=== PATIENT | male | born 1960 | race Caucasian/White ===

== ENCOUNTER 2024-08-30 08:41 | Emergency (ER) | payer OTHER, SELFPAY ==
[2024-08-30 09:09] VITALS: TEMP 36.9; O2SAT 95; BMI 20.5
--- NOTE | 2024-08-30 09:24 | CTR_ITS ---
PROCEDURE INFORMATION: Exam: CT Abdomen And Pelvis With Contrast Exam date and time: 08/30/2024 10:18 AM Age: 63 years old Clinical indication: Abdominal pain; Generalized; Patient HX: HX of hernia's, . PT has severe tremors d/t childhood disease; Additional info: Abd pain TECHNIQUE: Imaging protocol: Computed tomography of the abdomen and pelvis with contrast. Radiation optimization: All CT scans at this facility use at least one of these dose optimization techniques: automated exposure control; mA and/or kV adjustment per patient size (includes targeted exams where dose is matched to clinical indication); or iterative reconstruction. Contrast material: OMNIPAQUE 350; Contrast volume: 100 ml; Contrast route: INTRAVENOUS (IV); COMPARISON: No relevant prior studies available. RADIATION DOSE METRICS: Total DLP (mGy-cm): 698.56 FINDINGS: Image quality is suboptimal due to involuntary movements. Bulky retroperitoneal and pelvic lymphadenopathy identified. Multiple lymph nodes are necrotic. Consider metastatic disease or possibly suppurative lymphadenopathy. Correlation with clinical and laboratory baby helpful in this distinction. Moderately severe right hydronephrosis and proximal hydroureter, likely obstructed by the adenopathy. There is associated diminished right renal parenchymal enhancement as compared to the left kidney. Minimal free fluid within the lower pelvis. No free air detected. Very small bilateral pleural effusions are present. Granulomatous calcifications in the right lower lobe and within the spleen. Presumed cyst posterior dome of the liver. No definite acute abnormality of the liver, spleen, pancreas, or adrenal glands. Motion induced artifact could potentially obscure pathology. No gross gallbladder wall thickening or biliary duct dilation. Abdominal aorta has normal caliber. No aggressive osseous destructive lesions are seen. CT/CT abdomen pelvis w con* [id number] IMPRESSION: 1. Pathologic abdominal and pelvic lymphadenopathy with multiple nodes having decreased attenuation compatible with necrosis. This could be on the basis of metastatic disease. Correlation with clinical and laboratory data would be helpful to exclude possibility of infectious/suppurative lymphadenopathy. 2. Moderate right hydronephrosis and proximal hydroureter; right ureter apparently obstructed by the retroperitoneal lymphadenopathy. 3. Trace bilateral pleural effusions and trace free fluid within the lower pelvis.
--- NOTE | 2024-08-30 09:34 | ED_ITS ---
HPI - Nausea/Vomiting/Diarrhea 2 General: Chief complaint: Nausea/Vomiting/Diarrhea Stated complaint: Vomitting, weakness, pain - has hernias Time Seen by Provider: 08/30/24 09:21 Source: patient Mode of arrival: ambulatory Limitations: no limitations History of Present Illness: 63-year-old male states has been having lower abdominal pain along with nausea is been going on for 2 days. He is concerned as he has had history of hernias and has hernia repair in the past. He states pains to 3 out of 10 he denies any diarrhea denies any worse improved factors denies any fevers. He does have a severe resting tremor he states is from a childhood disease Associated nausea: Yes Associated symtoms: Reports nausea; Denies chest pain, dysuria or headache(s) Related Data Previous Rx's Medication Instructions Recorded ondansetron 4 mg disintegrating 4 mg PO Q6H PRN nausea and 08/30/24 tablet vomiting #14 tabs Allergies Allergy/AdvReac Type Severity Reaction Status Date / Time No Known Allergies Allergy Verified 08/30/24 09:18 Review of Systems 2 Const: Denies: fever(s), chills, body aches or change in appetite ENMT: Denies: throat pain or dental pain Card: Denies: chest pain Resp: Denies: dyspnea GI: Reports: abdominal pain and nausea; Denies: diarrhea : Denies: dysuria Musc: Denies: neck pain or back pain Skin/Breast: Denies: rash Neuro: Denies: headache(s) Physical Exam 2 Const: COMMON NORMALS: no acute distress, patient oriented x3 and healthy appearing HENMT: COMMON NORMALS: normocephalic and atraumatic HEAD & SCALP: n ormocephalic and atraumatic Eye: COMMON NORMALS: Equal, round and reactive pupils present and EOMs intact bilaterally PUPIL: Yes Equal, round and reactive pupils present Neck/C-Spine: COMMON NORMALS: full ROM and supple Chest: COMMONS NORMALS: normal inspection of the chest and normal palpation of entire chest wall Resp: COMMON NORMALS: normal respiratory effort, No retractions, No use of accessory muscles and clear to auscultation bilaterally AUSCULTATION: clear to auscultation bilaterally Cardio: COMMON NORMALS: regular rate, regular rhythm and No murmurs present (Cardio) RATE: regular rate RHYTHM: regular rhythm GI: COMMON NORMALS: Normal to inspection, nondistended, normoactive bowel sounds present, Soft to palpation, non-tender and no masses PALPATION: Yes Soft to palpation Extremity: COMMON NORMALS: normal to inspection and full ROM Neuro: COMMON NORMALS: patient oriented x3, moves all extremities and no focal motor deficits Psych: COMMON NORMALS: mental status grossly normal, Normal thought process present and cooperative THOUGHT PROCESS: Normal thought process present Skin: COMMON NORMALS: no rashes or lesions noted and no wounds GENERAL SKIN EXAM: no rashes or lesions noted Course 2 Vital Signs: Vital signs: Vital Signs Temperature 98.5 F 08/30/24 09:09 Pulse Rate 102 H 08/30/24 10:00 Blood Pressure 166/82 08/30/24 10:00 Pulse Oximetry 93 08/30/24 10:00 Oxygen Delivery Me thod Room Air 08/30/24 09:45 MDM - Nausea/Vomiting/Diarrhea Medical Decision Making Patient presents here with vomiting along with abdominal pain did palpable lymph nodes in his groin CT did show extensive lymphadenopathy we will get him follow- up with oncology along with PCP will prescribe Zofran return if worsening. Medical Records I reviewed the patient's medical records. Lab Data I reviewed the patient's lab results. 08/30/24 09:45 08/30/24 09:45 Radiology Impressions Abdomen/Pelvis CT 08/30/24 09:24 IMPRESSION: 1. Pathologic abdominal and pelvic lymphadenopathy with multiple nodes having decreased attenuation compatible with necrosis. This could be on the basis of metastatic disease. Correlation with clinical and laboratory data would be helpful to exclude possibility of infectious/suppurative lymphadenopathy. 2. Moderate right hydronephrosis and proximal hydroureter; right ureter apparently obstructed by the retroperitoneal lymphadenopathy. 3. Trace bilateral pleural effusions and trace free fluid within the lower pelvis. Laboratory Results WBC 5.38 10^3/uL (3.29-11.43) 08/30/24 09:45 RBC 3.61 10^6/uL (3.85-5.65) L 08/30/24 09:45 Hgb 9.40 g/dL (11.27-16.99) L 08/30/24 09:45 Hct 30.3 % (37-53) L 08/30/24 09:45 MCV 83.9 fl (82-101) 08/30/24 09:45 MCH 26.0 pg (27-33) L 08/30/24 09:45 MCHC 31.0 g/dL (30-55) 08/30/24 09:45 RDW 14.5 % (12.1-15.1) 08/30/24 09:45 Plt Count 183 10^3/cmm (157-399) 08/30/24 09:45 MPV 9.7 fL (7.4-10.4) 08/30/24 09:45 Neut % (Auto) 79.1 % 08/30/24 09:45 Lymph % (Auto) 7.2 % 08/30/24 09:45 [place] % (Auto) 11.5 % 08/30/24 09:45 Eos % (Auto) 0.4 % 08/30/24 09:45 Baso % (Auto) 1.1 % 08/30/24 09:45 Neut # (Auto) 4.25 10^3/uL (1.8-7.7) 08/30/24 09:45 Lymph # (Auto) 0.4 10^3/uL (0.8-4.8) L 08/30/24 09:45 [place] # (Auto) 0.6 10^3/uL (0.2-0.9) 08/30/24 09:45 Eos # (Auto) 0.0 10^3/uL (0.0-0.8) 08/30/24 09:45 Baso # (Auto) 0.1 10^3/uL (0.0-0.1) 08/30/24 09:45 Nucleated RBC % (auto) 0 % 08/30/24 09:45 Nucleated RBCs # 0.0 /100WBC 08/30/24 09:45 Sodium 133 mmol/L (136-145) L 08/30/24 09:45 Potassium 4.5 mmol/L (3.5-5.1) 08/30/24 09:45 Chloride 98 mmol/L (98-107) 08/30/24 09:45 Carbon Dioxide 27 mmol/L (22-29) 08/30/24 09:45 Anion Gap 12.5 (5-19) 08/30/24 09:45 BUN 31 mg/dL (8-23) H 08/30/24 09:45 Creatinine 1.2 mg/dL (0.7-1.2) 08/30/24 09:45 GFR Calculation 61.6 mL/min (90-130) L 08/30/24 09:45 Glucose 83 mg/dL (65-115) 08/30/24 09:45 Calculated Osmolality 282 mOsm/kg (285-295) L 08/30/24 09:45 Calcium 8.3 mg/dL (8.5-10.5) L 08/30/24 09:45 Total Bilirubin 0.3 mg/dL (0.15-1.2) 08/30/24 09:45 AST 23 U/L (0-40) 08/30/24 09:45 ALT 17 U/L (0-41) 08/30/24 09:45 Alkaline Phosphatase 74 U/L (40-130) 08/30/24 09:45 Total Protein 6.0 g/dL (6.6-8.7) L 08/30/24 09:45 Albumin 3.2 g/dL (3.5-5.2) L 08/30/24 09:45 Globulin 2.8 g/dL (1.3-4.6) 08/30/24 09:45 Lipase 220 U/L (13-60) H 08/30/24 09:45 Urine Color Yellow (Yellow) 08/30/24 11:10 Urine Appearance Clear (CLEAR) 08/30/24 11:10 Urine pH 5.5 (5-7) 08/30/24 11:10 Ur Specific [place] 1.037 (1.005-1.030) H 08/30/24 11:10 Urine Protein 1+ (Negative) A 08/30/24 11:10 Urine Glucose (UA) Negative (Normal) 08/30/24 11:10 Urine Ketones Negative (Negative) 08/30/24 11:10 Urine Blood Negative (Negative) 08/30/24 11:10 Urine Nitrate Negative (Negative) 08/30/24 11:10 Urine Bilirubin Negative (Negative) 08/30/24 11:10 Urine Urobilinogen 1.0 mg/dL (Negative) 08/30/24 11:10 Ur Leukocyte Esterase Negative (Negative) 08/30/24 11:10 Urine RBC 0-2 /hpf (0-2) 08/30/24 11:10 Urine WBC 0-5 /hpf (0-5) 08/30/24 11:10 Ur Squamous Epith Cells 0-5 /hpf (0-5) 08/30/24 11:10 Amorphous Sediment Not Reportable 08/30/24 11:10 Urine Bacteria None seen /hpf (NONE) 08/30/24 11:10 Hyaline Casts 3.30 /lpf 08/30/24 11:10 All radiology interpretation(s) finalized by discharge Discharge Plan Discharge Patient Disposition: Home Clinical Impression: Vomiting, Lymphadenopathy Condition: Stable Prescriptions: New ondansetron 4 mg tablet,disintegrating 4 mg PO Q6H PRN (Reason: nausea and vomiting) Qty: 14 0RF Discharge Orders: Discharge ED (Routine); Ordered 08/30/24 Ordered By: Marva Irizarry Discharge Diet: Advance as tolerated Discharge Activity: Resume usual activity Patient Instructions: Lymphadenopathy (ED), Acute Nausea and Vomiting (ED) Coding Level of Care Code ED Senior Staff Psychologist for Elva Medina
[2024-08-30 09:45] VITALS: BP 162/55; PULSE 102; O2SAT 100
[2024-08-30] MEDS: LORazepam 2 mg/mL INJ 1 mL 1 MG IVP (09:52)
[2024-08-30 09:55] LABS: Basophils # 0.1 10^3/uL (0.0-0.1); Basophils % 1.1 %; Eosinophils % 0.4 %; Hematocrit 30.3 % (37-53); Lymphocytes # 0.4 10^3/uL (0.8-4.8); Lymphocytes % 7.2 %; Mean Corpuscular Volume 83.9 fl (82-101); Mean Platelet Volume 9.7 fL (7.4-10.4); Monocytes # 0.6 10^3/uL (0.2-0.9); Monocytes % 11.5 %; Neutrophils # 4.25 10^3/uL (1.8-7.7); Neutrophils % 79.1 %; Nucleated Red Blood Cells % 0 %; Platelet Count 183 10^3/cmm (157-399); Red Blood Count 3.61 10^6/uL (3.85-5.65); Red Cell Distribution Width 14.5 % (12.1-15.1); White Blood Count 5.38 10^3/uL (3.29-11.43)
[2024-08-30 10:00] VITALS: BP 166/82; PULSE 102; O2SAT 93
[2024-08-30 10:11] LABS: Alanine Aminotransferase 17 U/L (0-41); Albumin Level 3.2 g/dL (3.5-5.2); Alkaline Phosphatase 74 U/L (40-130); Anion Gap 12.5 (5-19); Aspartate Amino Transferase 23 U/L (0-40); Blood Urea Nitrogen 31 mg/dL (8-23); Calcium 8.3 mg/dL (8.5-10.5); Carbon Dioxide 27 mmol/L (22-29); Chloride 98 mmol/L (98-107); Creatinine Clr Calc Pharmacy 59.9211; Globulin 2.8 g/dL (1.3-4.6); Glomerular Filtration Rate 61.6 mL/min (90-130); Glucose 83 mg/dL (65-115); Lipase 220 U/L (13-60); Osmolality Calculated 282 mOsm/kg (285-295); Potassium 4.5 mmol/L (3.5-5.1); Sodium 133 mmol/L (136-145); Total Bilirubin 0.3 mg/dL (0.15-1.2)
[2024-08-30] MEDS: iohexol 350 mg/mL 500 mL Btl (per mL) IV (10:23)
[2024-08-30 11:31] LABS: Bilirubin Urine Negative (Negative); Blood Urine Negative (Negative); Glucose Urine UA Negative (Normal); Ketones Urine Negative (Negative); Leukocyte Esterase Urine Negative (Negative); Nitrate Urine Negative (Negative); Protein Urine 1+ (Negative); Urine Appearance Clear (CLEAR); Urine Color Yellow (Yellow); pH Urine 5.5 (5-7)
[2024-08-30 11:36] LABS: Add Urine Microscopic? YES; Bacteria Urine None Seen /hpf; RBC Urine 0-2 /hpf (0-2); Squamous Epithelial Cell Urine 0-5 /hpf (0-5); WBC Urine 0-5 /hpf (0-5)
[2024-08-30 11:37] LABS: Specific Gravity, Urine 1.037 (1.005-1.030)
[2024-08-30 12:09] VITALS: BP 110/56; PULSE 98; O2SAT 99
--- NOTE | 2024-08-31 08:06 | DCPLANNER ---
messaged [facility] and oncology for er f/u
== END 2024-08-30 12:12 | disposition home or self-care (01) ==
PROVIDERS: Emergency Provider Emergency Medicine
DX: R59.1 Generalized enlarged lymph nodes (principal); R11.11 Vomiting without nausea
CPT/HCPCS: 74177; 80053; 81001; 83690; 85025; 96374; 99285; J2060

== ENCOUNTER 2024-09-02 09:41 | Emergency (ER) | payer OTHER, SELFPAY ==
[2024-09-02 10:01] VITALS: PULSE 115; RESP 16; TEMP 36.7; O2SAT 95
--- NOTE | 2024-09-02 10:28 | PC.PHAR ---
patient confirms that he doesn't take any medications other than what he just got prescribed a couple days ago when released. Will call pharmacy just to confirm
[2024-09-02 10:31] LABS: Basophils % 0.8 %; Eosinophils % 0.2 %; Hematocrit 28.3 % (37-53); Lymphocytes # 0.4 10^3/uL (0.8-4.8); Lymphocytes % 8.5 %; Mean Corpuscular HGB Conc 31.8 g/dL (30-55); Mean Corpuscular Hemoglobin 26.3 pg (27-33); Mean Corpuscular Volume 82.7 fl (82-101); Mean Platelet Volume 9.6 fL (7.4-10.4); Monocytes # 0.4 10^3/uL (0.2-0.9); Monocytes % 7.9 %; Neutrophils % 81.1 %; Nucleated Red Blood Cells % 0 %; Platelet Count 174 10^3/cmm (157-399); Red Blood Count 3.42 10^6/uL (3.85-5.65); Red Cell Distribution Width 14.6 % (12.1-15.1); White Blood Count 4.81 10^3/uL (3.29-11.43)
--- NOTE | 2024-09-02 10:36 | W.ED.GENADLT ---
HPI - General Adult General: Chief complaint: General Medical Stated complaint: pain in groin, cant sleep, trouble walking Time Seen by Provider: 09/02/24 10:10 History of Present Illness: 63-year-old male presents emergency room complaint of groin pain difficulty walking patient has pain and swelling in the groin. He was seen a couple days earlier had a CT done that showed significant mental lymphadenopathy. He also has slight elevation of his lipase. He has not had any nausea or vomiting just severe pain. He has not had any abdominal pain is limited to the groin region. No dysuria urgency or frequency. He was scheduled to see oncology but has not yet seen them Associated symptoms: Deny chest pain, dyspnea or rash Related Data Previous Rx's Medication Instructions Recorded ondansetron 4 mg disintegrating 4 mg PO Q6H PRN nausea and 08/30/24 tablet vomiting #14 tabs hydrocodone 5 mg-acetaminophen 325 1 tab PO Q6H PRN pain #25 tabs 09/02/24 mg tablet Allergies Allergy/AdvReac Type Severity Reaction Status Date / Time No Known Allergies Allergy Verified 08/30/24 09:18 Review of Systems Const: Denies: fever(s) or chills Card: Denies: chest pain Resp: Denies: dyspnea GI: Reports: abdominal pain : Denies: dysuria, urinary frequency or urinary urgency Musc: Denies: neck pain or back pain Skin/Breast: Denies: rash Physical Exam Const: GENERAL APPEARANCE: cooperative ORIENTATION/CONSCIOUSNESS: Yes awake, Yes oriented to person, Yes oriented to place and Yes oriented to time HENMT: COMMON NORMALS: normocephalic, atraumatic and hearing grossly normal bilaterally HEAD & SCALP: normocephalic and atraumatic Resp: COMMON NORMALS: normal respiratory effort, No retractions, No use of accessory muscles and clear to auscultation bilaterally AUSCULTATION: clear to auscultation bilaterally Cardio: COMMON NORMALS: regular rate, regular rhythm and No murmurs present (Cardio) RATE: regular rate RHYTHM: regular rhythm GI: COMMON NORMALS: Soft to palpation and No hepatosplenomegaly present AUSCULTATION: Yes normoactive bowel sounds PALPATION: Yes Soft to palpation, No Tenderness to palpation present (GI), No Guarding due to palpation present (GI) and Yes No hepatosplenomegaly present Extremity: COMMON NORMALS: normal to inspection, capillary refill normal, no clubbing, cyanosis or edema, no calf tenderness and no pedal edema Neuro: SENSORIUM/ORIENTATION: Yes oriented to person, Yes oriented to place and Yes oriented to time Skin: COMMON NORMALS: no rashes or lesions noted GENERAL SKIN EXAM: no rashes or lesions noted Course Vital Signs: Vital signs: Vital Signs Temperature 98.1 F 09/02/24 10:01 Pulse Rate 104 H 09/02/24 11:58 Respiratory Rate 28 H 09/02/24 11:09 Blood Pressure 142/103 09/02/24 11:58 Pulse Oximetry 94 09/02/24 11:58 Oxygen Delivery Me thod Room Air 09/02/24 11:08 MDM - General Adult Medical Decision Making Patient has exquisitely tender bilateral lymphadenopathy. He has no abdominal pain labs reviewed he is anemic but this unchanged. His other labs did not show clinically significant abnormality or significant change with the 1 exception being his bilirubin is slightly elevated from before. He does not have any abdominal pain biliary colic left upper quadrant pain at this time. He feels much better after receiving pain medication at. Will discharge patient home and he should keep the oncology appointment but as a prior step would be better served to see general surgery and have a lymph node biopsy so oncology has some tissue diagnosis to work with to offer treatment options pending the results of the biopsies. Discharge patient home with pain medications. Medical Records I reviewed the patient's medical records. Lab Data I reviewed the patient's lab results. 09/02/24 10:22 09/02/24 10:22 Radiology Impressions Chest X-Ray 09/02/24 10:37 IMPRESSION: Minimal right pleural effusion. Laboratory Results WBC 4.81 10^3/uL (3.29-11.43) 09/02/24 10: RBC 3.42 10^6/uL (3.85-5.65) L 09/02/24 10: Hgb 9.00 g/dL (11.27-16.99) L 09/02/24 10:22 Hct 28.3 % (37-53) L 09/02/24 10:22 MCV 82.7 fl (82-101) 09/02/24 10: MCH 26.3 pg (27-33) L 09/02/24 10:22 MCHC 31.8 g/dL (30-55) 09/02/24 10: RDW 14.6 % (12.1-15.1) 09/02/24 10: Plt Count 174 10^3/cmm (157-399) 09/02/24 10:22 MPV 9.6 fL (7.4-10.4) 09/02/24 10:22 Neut % (Auto) 81.1 % 09/02/24 10:22 Lymph % (Auto) 8.5 % 09/02/24 10:22 [place] % (Auto) 7.9 % 09/02/24 10:22 Eos % (Auto) 0.2 % 09/02/24 10:22 Baso % (Auto) 0.8 % 09/02/24 10: Neut # (Auto) 3.90 10^3/uL (1.8-7.7) 09/02/24 10:22 Lymph # (Auto) 0.4 10^3/uL (0.8-4.8) L 09/02/24 10:22 [place] # (Auto) 0.4 10^3/uL (0.2-0.9) 09/02/24 10:22 Eos # (Auto) 0.0 10^3/uL (0.0-0.8) 09/02/24 10:22 Baso # (Auto) 0.0 10^3/uL (0.0-0.1) 09/02/24 10:22 Nucleated RBC % (auto) 0 % 09/02/24 10:22 Nucleated RBCs # 0.0 /100WBC 09/02/24 10:22 Sodium 131 mmol/L (136-145) L 09/02/24 10:22 Potassium 4.5 mmol/L (3.5-5.1) 09/02/24 10:22 Chloride 95 mmol/L (98-107) L 09/02/24 10:22 Carbon Dioxide 26 mmol/L (22-29) 09/02/24 10:22 Anion Gap 14.5 (5-19) 09/02/24 10:22 BUN 31 mg/dL (8-23) H 09/02/24 10:22 Creatinine 1.2 mg/dL (0.7-1.2) 09/02/24 10:22 GFR Calculation 61.6 mL/min (90-130) L 09/02/24 10:22 Glucose 86 mg/dL (65-115) 09/02/24 10:22 Calculated Osmolality 278 mOsm/kg (285-295) L 09/02/24 10:22 Calcium 8.4 mg/dL (8.5-10.5) L 09/02/24 10:22 Total Bilirubin 1.5 mg/dL (0.15-1.2) H 09/02/24 10:22 AST 24 U/L (0-40) 09/02/24 10:22 ALT 17 U/L (0-41) 09/02/24 10:22 Alkaline Phosphatase 66 U/L (40-130) 09/02/24 10:22 C-Reactive Protein 104.1 mg/L (0.0-4.9) H 09/02/24 10:22 Total Protein 5.8 g/dL (6.6-8.7) L 09/02/24 10:22 Albumin 3.0 g/dL (3.5-5.2) L 09/02/24 10:22 Globulin 2.8 g/dL (1.3-4.6) 09/02/24 10:22 Urine Color Yellow (Yellow) 09/02/24 10:53 Urine Appearance Clear (CLEAR) 09/02/24 10:53 Urine pH 5.0 (5-7) 09/02/24 10:53 Ur Specific [place] 1.024 (1.005-1.030) 09/02/24 10:53 Urine Protein 2+ (Negative) A 09/02/24 10:53 Urine Glucose (UA) Negative (Normal) 09/02/24 10:53 Urine Ketones Negative (Negative) 09/02/24 10:53 Urine Blood Negative (Negative) 09/02/24 10:53 Urine Nitrate Negative (Negative) 09/02/24 10:53 Urine Bilirubin Negative (Negative) 09/02/24 10:53 Urine Urobilinogen 1.0 mg/dL (Negative) 09/02/24 10:53 Ur Leukocyte Esterase Negative (Negative) 09/02/24 10:53 Urine RBC 0-2 /hpf (0-2) 09/02/24 10:53 Urine WBC 0-5 /hpf (0-5) 09/02/24 10:53 Ur Squamous Epith Cells 0-5 /hpf (0-5) 09/02/24 10:53 Amorphous Sediment Not Reportable 09/02/24 10:53 Urine Bacteria None seen /hpf (NONE) 09/02/24 10:53 Hyaline Casts 33.08 /lpf 09/02/24 10:53 All radiology interpretation(s) finalized by discharge Discharge Plan Discharge Patient Disposition: Home Clinical Impression: Lymphadenopathy Condition: Stable Prescriptions: New hydrocodone-acetaminophen 5-325 mg tablet 1 tab PO Q6H PRN (Reason: pain) Qty: 25 0RF No Action ondansetron 4 mg tablet,disintegrating 4 mg PO Q6H PRN (Reason: nausea and vomiting) Qty: 14 0RF Discharge Orders: Discharge ED (Routine); Ordered 09/02/24 Ordered By: Guille Espinoza Patient Instructions: Opioid Safety, Pain Management Activity Restrictions/Additional Instructions: Thank you for choosing [facility] for your healthcare needs today. It is very important that you follow up as instructed or that you return to the Emergency Department should you have concerns or if your condition changes or worsens in any way. You were seen today for continued pain in the groin. Your laboratory tests showed anemia consistent with what was seen on the prior testing. You had other lab abnormalities on your bilirubin. We will make arrangements for you to follow-up with general surgery to have the lymph nodes biopsied. Return if you have further problems. Coding Level of Care Code ED Certified Legal Secretary Specialist for Elva Medina
--- NOTE | 2024-09-02 10:37 | XRR_ITS ---
PROCEDURE INFORMATION: Exam: XR Chest Exam date and time: 09/02/2024 10:39 AM Age: 63 years old Clinical indication: Cough and dyspnea; Additional info: Dyspnea/cough TECHNIQUE: Imaging protocol: Radiologic exam of the chest. Views: 1 view. COMPARISON: CT abdomen pelvis w con* [id number] 08/30/2024 10:18 AM FINDINGS: Lungs: Mild right basilar linear atelectasis versus scarring. Subtle linear densities at the mid right lung zone may also represent atelectasis or scarring. No consolidation. Pleural spaces: Minimal right pleural effusion. No pneumothorax. Heart/Mediastinum: Unremarkable. No cardiomegaly. Bones/joints: Unremarkable. XR/XR chest 1V portable [id number] IMPRESSION: Minimal right pleural effusion.
[2024-09-02 10:38] VITALS: BP 120/90
[2024-09-02 10:48] LABS: Alanine Aminotransferase 17 U/L (0-41); Alkaline Phosphatase 66 U/L (40-130); Anion Gap 14.5 (5-19); Aspartate Amino Transferase 24 U/L (0-40); Blood Urea Nitrogen 31 mg/dL (8-23); C Reactive Protein 104.1 mg/L (0.0-4.9); Calcium 8.4 mg/dL (8.5-10.5); Carbon Dioxide 26 mmol/L (22-29); Chloride 95 mmol/L (98-107); Globulin 2.8 g/dL (1.3-4.6); Glomerular Filtration Rate 61.6 mL/min (90-130); Glucose 86 mg/dL (65-115); Osmolality Calculated 278 mOsm/kg (285-295); Potassium 4.5 mmol/L (3.5-5.1); Sodium 131 mmol/L (136-145); Total Bilirubin 1.5 mg/dL (0.15-1.2); Total Protein 5.8 g/dL (6.6-8.7)
[2024-09-02 10:51] LABS: Slide Review Slide Review Perform
[2024-09-02 11:08] VITALS: BP 133/78; PULSE 96; RESP 28; O2SAT 94
[2024-09-02 11:09] VITALS: RESP 28; O2SAT 93
[2024-09-02 11:09] LABS: Bilirubin Urine Negative (Negative); Blood Urine Negative (Negative); Glucose Urine UA Negative (Normal); Ketones Urine Negative (Negative); Leukocyte Esterase Urine Negative (Negative); Nitrate Urine Negative (Negative); Protein Urine 2+ (Negative); Specific Gravity, Urine 1.024 (1.005-1.030); Urine Appearance Clear (CLEAR); Urine Color Yellow (Yellow)
[2024-09-02] MEDS: morphine 4 mg/mL SDV 1 mL IVP (11:09)
[2024-09-02] MEDS: ondansetron 2 mg/ML SDV 2 mL 4 MG IVP (11:09)
[2024-09-02 11:11] LABS: Add Urine Microscopic? YES; Bacteria Urine None Seen /hpf; Hyaline Casts Urine 33.08 /lpf; RBC Urine 0-2 /hpf (0-2); Squamous Epithelial Cell Urine 0-5 /hpf (0-5); WBC Urine 0-5 /hpf (0-5)
[2024-09-02 11:33] LABS: UA Slide Review UA Slide Review Perf
[2024-09-02 11:58] VITALS: BP 142/103; PULSE 104; O2SAT 94
--- NOTE | 2024-09-02 12:04 | DCPLANNER ---
Scheduled with Leydi for a consult with Dr Tipton for 09/03 @ 1:15p
--- NOTE | 2024-09-02 12:08 | PC.NURSE ---
this nurse educated pt on appointment with Dr. Tipton tomorrow, 09/03/2024, @6613. pt aware of consult/biopsy plan. no further questions/concerns
--- NOTE | 2024-09-03 07:31 | DCPLANNER ---
messaged gen surg for er f/u
== END 2024-09-02 12:07 | disposition home or self-care (01) ==
PROVIDERS: Emergency Provider Family Medicine
DX: R59.1 Generalized enlarged lymph nodes (principal)
CPT/HCPCS: 71045; 80053; 81001; 85025; 86140; 96374; 96375; 99284; J2270; J2405

== ENCOUNTER 2024-09-11 15:17 | Inpatient (IN) | payer OTHER, SELFPAY ==
[2024-09-11] VITALS (37 sets, daily range): BP systolic 70–132; BP diastolic 40–80; PULSE 88–157; RESP 14–28; TEMP 36.5–37.4; O2SAT 85–100; BMI 21.2
--- NOTE | 2024-09-11 15:24 | ECG_ITS ---
[employer] Test Date: 2024-09-11 Pat Name: Cricket Moran Department: Room: Gender: Male Cobbler Upper: : 1960 Requested By: Garland Spears Order Number: [id number] Perez MD: Madeline Boston M.D. Measurements Intervals [place] Rate: 156 P: 0 VA: 0 QRS: 82 QRSD: 85 T: -74 QT: 263 QTc: 424 Interpretive Statements ATRIAL FIBRILLATION WITH RAPID VENTRICULAR RESPONSE ST DEVIATION AND MODERATE T-WAVE ABNORMALITY, CONSIDER INFERIOR ISCHEMIA No previous ECG available for comparison Electronically Signed On 09-12-2024 13:43:58 CDT by Madeline Boston M.D. [email or web address]
--- NOTE | 2024-09-11 15:40 | XRR_ITS ---
PROCEDURE INFORMATION: Exam: XR Chest Exam date and time: 09/11/2024 4:05 PM Age: 63 years old Clinical indication: Shortness of breath and other: Atrial fibrillation TECHNIQUE: Imaging protocol: Radiologic exam of the chest. Views: 1 view. COMPARISON: CR XR chest 1V portable [id number] 09/02/2024 10:39 AM FINDINGS: Lungs: No focal consolidation. Pleural spaces: No sizable pleural effusion. No pneumothorax. Heart/Mediastinum: Unremarkable cardiomediastinal silhouette. Bones/joints: The spine demonstrates mild degenerative changes at multiple levels. XR/XR chest 1V portable [id number] IMPRESSION: No acute findings.
[2024-09-11] MEDS: dilTIAZem 5 mg/mL SDV 5 mL 10 MG IVP (15:57)
[2024-09-11] MEDS: sodium chloride 0.9% 1,000 ML 999 ML IV ×3 (15:57→17:05)
--- NOTE | 2024-09-11 15:57 | PC.NURSE ---
UNABLE TO OBTAIN OXYGEN SATURATION READING IN TRIAGE DUE TO PT TREMORS AND PT BEING COLD.
[2024-09-11] MEDS: dilTIAZem 100 MG in sodium chloride 0.9% (add-van) 100 ML IV (15:59)
[2024-09-11 16:00] LABS: Basophils # 0.1 10^3/uL (0.0-0.1); Basophils % 0.5 %; Eosinophils # 0.1 10^3/uL (0.0-0.8); Eosinophils % 0.6 %; Hematocrit 32.5 % (37-53); Lymphocytes # 3.2 10^3/uL (0.8-4.8); Lymphocytes % 13.5 %; Mean Corpuscular HGB Conc 29.5 g/dL (30-55); Mean Corpuscular Hemoglobin 25.6 pg (27-33); Mean Corpuscular Volume 86.7 fl (82-101); Mean Platelet Volume 10.3 fL (7.4-10.4); Monocytes # 1.9 10^3/uL (0.2-0.9); Monocytes % 8.1 %; Neutrophils # 13.04 10^3/uL (1.8-7.7); Neutrophils % 55.9 %; Nucleated Red Blood Cells # 0.4 /100WBC; Nucleated Red Blood Cells % 1.6 %; Platelet Count 113 10^3/cmm (157-399); Red Blood Count 3.75 10^6/uL (3.85-5.65); White Blood Count 23.32 10^3/uL (3.29-11.43)
[2024-09-11 16:05] LABS: ABG PCO2 28.9 mmHg (35-45); ABG PH Result 7.31 (7.35-7.45); Arterial Blood Gas Hematocrit 25.2 % (42-52); Base Excess ABG -10.8 mmol/L (-2.0-2.0); Blood Gas Operator Identificat AMH; Blood Gas Sample Site Brachial, right; Blood Gas Sample Type Arterial; HCO3 ABG 14.4 mmol/L (22-26)
[2024-09-11 16:06] LABS: Oxygen Device NC; PO2 FiO2 Ratio Arterial Blood 450
--- NOTE | 2024-09-11 16:08 | PC.NURSE ---
CHAZ FROM [employer] INFORMED THIS NURSE OF PT LIVING CONDITIONS. CHAZ STATED THAT PT WAS FOUND ON THE FLOOR, UNABLE TO GET UP AND UNABLE TO REGULATORY COMPLIANCE SPECIALIST HIS WATER. CHAZ STATED SHE WANTED TO FOLLOW UP TO MAKE SURE ER STAFF KNEW THE ENTIRE STORY OF PT LIVING CONDITIONS. CHAZ SAID SHE WOULD FOLLOW UP ON PT STAY AT THE HOSPITAL.
[2024-09-11 16:13] LABS: D Dimer 3.49 ug/mLFEU (0-0.59)
[2024-09-11 16:15] LABS: Troponin(5th) Baseline 66 ng/L (0-15)
[2024-09-11 16:16] LABS: Alanine Aminotransferase 31 U/L (0-41); Alkaline Phosphatase 99 U/L (40-130); Anion Gap 30.3 (5-19); Aspartate Amino Transferase 68 U/L (0-40); Calcium 10.3 mg/dL (8.5-10.5); Carbon Dioxide 16 mmol/L (22-29); Chloride 94 mmol/L (98-107); Globulin 2.2 g/dL (1.3-4.6); Glomerular Filtration Rate 19.2 mL/min (90-130); Glucose 104 mg/dL (65-115); Lipase 211 U/L (13-60); Osmolality Calculated 308 mOsm/kg (285-295); Potassium 5.3 mmol/L (3.5-5.1); Sodium 135 mmol/L (136-145); Total Bilirubin 1.1 mg/dL (0.15-1.2); Total Protein 5.2 g/dL (6.6-8.7)
[2024-09-11 16:18] LABS: Blood Urea Nitrogen 91 mg/dL (8-23); Lactic Sepsis W/Reflex 11.7 mmol/L (0.5-2.2); Partial Thromboplastin Time 75.9 SECONDS (23.9-36.7)
[2024-09-11 16:26] LABS: Thyroid Stimulating Hormone 2.81 uIU/mL (0.27-4.20)
[2024-09-11 16:27] LABS: NT Pro B Type Natriuretic Pept 4216 pg/mL (0-125)
[2024-09-11 16:36] LABS: Bilirubin Urine Negative (Negative); Blood Urine 2+ (Negative); Glucose Urine UA Negative (Normal); Ketones Urine Trace (Negative); Leukocyte Esterase Urine Negative (Negative); Nitrate Urine Negative (Negative); Protein Urine 1+ (Negative); Specific Gravity, Urine 1.017 (1.005-1.030); Urine Appearance Cloudy (CLEAR); Urine Color Yellow (Yellow)
--- NOTE | 2024-09-11 16:39 | W.ED.WEAKNES ---
HPI - Weakness General: Chief complaint: Weakness Stated complaint: etta edema, failure to thrive, resp distress Time Seen by Provider: 09/11/24 15:22 History of Present Illness: This patient is a 63-year-old white male who presents to the emergency department in respiratory distress and failure to thrive at home. Patient called EMS himself because he stated he was not feeling well. States he has not been feeling well for a long time . He does live alone. His a month ago and he has not been taking care of himself and has not been eating. States the only medication he takes is 1 pain pill. States he has no chronic medical problems. He denies having any pain at this time. Specifically no chest pain. States he has some occasional shortness of breath. Review of Systems General: Reports: 10 or more systems reviewed and unremarkable except in HPI and below Const: Reports: change in appetite, change in weight, fatigue and malaise Resp: Reports: dyspnea PFSH ED PFSH: Social History Smoking and tobacco/nicotine status: former use of tobacco/nicotine Physical Exam Const: COMMON NORMALS: patient oriented x3 and no limitations GENERAL APPEARANCE: cooperative, in distress, disheveled, lethargic, ill appearing, frail appearing and appears older than stated age NUTRITIONAL APPEARANCE: cachectic and underweight ORIENTATION/CONSCIOUSNESS: Yes lethargic HENMT: COMMON NORMALS: normocephalic and atraumatic HEAD & SCALP: normal to inspection, normocephalic and atraumatic FACE & SINUS: normal facial exam MOUTH: other (Dry mucous membranes) Eye: COMMON NORMALS: Equal, round and reactive pupils present, EOMs intact bilaterally and conjunctivae normal GENERAL EYE: appearance normal, both eyes and all related structures CONJUNCTIVA: Yes conjunctivae normal PUPIL: Yes Equal, round and reactive pupils present Neck/C-Spine: COMMON NORMALS: supple Chest: COMMONS NORMALS: normal inspection of the chest Resp: COMMON NORMALS: normal respiratory effort and clear to auscultation bilaterally AUSCULTATION: clear to auscultation bilaterally Cardio: RATE: tachycardic RHYTHM: abnormal rhythm irregularly irregular GI: COMMON NORMALS: Normal to inspection, nondistended, normoactive bowel sounds present, Soft to palpation and non-tender AUSCULTATION: Yes normoactive bowel sounds PALPATION: Yes Soft to palpation : COMMON NORMALS: Yes no CVA tenderness BLADDER/KIDNEY EXAM: Yes no CVA tenderness Back/Pelvis: COMMON NORMALS: no CVA tenderness and thoracic and lumbar spine normal to inspection Extremity: COMMON NORMALS: normal to inspection Neuro: COMMON NORMALS: patient oriented x3 and CN's II-XII intact bilaterally SENSORIUM/ORIENTATION: Yes lethargic Psych: COMMON NORMALS: mental status grossly normal, Normal thought process present and cooperative THOUGHT PROCESS: Normal thought process present Skin: COMMON NORMALS: no rashes or lesions noted, turgor normal and no jaundice GENERAL SKIN EXAM: no rashes or lesions noted and turgor normal Course Vital Signs: Vital signs: Vital Signs Temperature 97.7 F 09/11/24 15:18 Pulse Rate 125 H 09/11/24 17:04 Respiratory Rate 25 H 09/11/24 17:04 Blood Pressure 109/74 09/11/24 17:04 Pulse Oximetry 100 09/11/24 17:04 Oxygen Delivery Me thod Nasal Cannula 09/11/24 17:04 Oxygen Flow Rate 2 09/11/24 17:04 MDM - Weakness Medical Decision Making Upon arrival patient's blood pressure was in the 90s systolic and heart rate in the 150s. He appeared to be in atrial fibrillation with rapid ventricular response. EKG does reveal that his ventricular rate is 156. Patient was immediately given IV fluids and Cardizem bolus and placed on a Cardizem drip. His CBC reveals a white blood cell count of 23.3, hemoglobin 9.6 and a platelet count of 113. CMP reveals a potassium of 5.3, bicarb of 16, BUN 91, creatinine 3.3. Lactic acid 11.7. D-dimer 3.5. Baseline troponin 66. Urinalysis is consistent with a urinary tract infection. Chest x-ray did not reveal any infiltrates. Sepsis protocol initiated. Patient will be given a total of 3 L of normal saline. He will also be given vancomycin and Zosyn. I discussed the case with Dr. Braswell, hospitalist. Patient will be admitted to the intensive care unit. Later during the ER stay patient's systolic blood pressure dropped down into the 80s so we then initiated norepinephrine per protocol. Patient is in critical condition. Lab Data 09/11/24 15:40 09/11/24 15:40 Radiology Impressions Chest X-Ray 09/11/24 15:40 IMPRESSION: No acute findings. Laboratory Results WBC 23.32 10^3/uL (3.29-11.43) H 09/11/24 15:40 RBC 3.75 10^6/uL (3.85-5.65) L 09/11/24 15:40 Hgb 9.60 g/dL (11.27-16.99) L 09/11/24 15:40 Hct 32.5 % (37-53) L 09/11/24 15:40 MCV 86.7 fl (82-101) 09/11/24 15:40 MCH 25.6 pg (27-33) L 09/11/24 15:40 MCHC 29.5 g/dL (30-55) L 09/11/24 15:40 RDW 16.0 % (12.1-15.1) H 09/11/24 15:40 Plt Count 113 10^3/cmm (157-399) L 09/11/24 15:40 MPV 10.3 fL (7.4-10.4) 09/11/24 15:40 Neut % (Auto) 55.9 % 09/11/24 15:40 Lymph % (Auto) 13.5 % 09/11/24 15:40 Kerr % (Auto) 8.1 % 09/11/24 15:40 Eos % (Auto) 0.6 % 09/11/24 15:40 Baso % (Auto) 0.5 % 09/11/24 15:40 Neut # (Auto) 13.04 10^3/uL (1.8-7.7) H 09/11/24 15:40 Lymph # (Auto) 3.2 10^3/uL (0.8-4.8) 09/11/24 15:40 Kerr # (Auto) 1.9 10^3/uL (0.2-0.9) H 09/11/24 15:40 Eos # (Auto) 0.1 10^3/uL (0.0-0.8) 09/11/24 15:40 Baso # (Auto) 0.1 10^3/uL (0.0-0.1) 09/11/24 15:40 Nucleated RBC % (auto) 1.6 % 09/11/24 15:40 Nucleated RBCs # 0.4 /100WBC 09/11/24 15:40 PT 16.60 SECONDS (12.1-14.9) H 09/11/24 15:40 INR 1.30 (0.8-1.2) H 09/11/24 15:40 APTT 75.9 SECONDS (23.9-36.7) H 09/11/24 15:40 D-Dimer 3.49 ug/mLFEU (0-0.59) H 09/11/24 15:40 Specimen Type Arterial 09/11/24 15:55 Sample Site Brachial, right 09/11/24 15:55 ABG pH 7.31 (7.35-7.45) L 09/11/24 15:55 ABG pCO2 28.9 mmHg (35-45) L 09/11/24 15:55 ABG pO2 162.0 mmHg (80.0-100.0) H 09/11/24 15:55 ABG PO2/FiO2 Ratio 450 09/11/24 15:55 ABG HCO3 14.4 mmol/L (22-26) L 09/11/24 15:55 ABG Base Excess -10.8 mmol/L (-2.0-2.0) L 09/11/24 15:55 Jordin Test N/a 09/11/24 15:55 Hematocrit 25.2 % (42-52) L 09/11/24 15:55 O2 Delivery Device Nc 09/11/24 15:55 O2 Liters/Min 4.0 % 09/11/24 15:55 FiO2 36.0 % 09/11/24 15:55 Geosciences Associate Professor ID Amh 09/11/24 15:55 Sodium 135 mmol/L (136-145) L 09/11/24 15:40 Potassium 5.3 mmol/L (3.5-5.1) H 09/11/24 15:40 Chloride 94 mmol/L (98-107) L 09/11/24 15:40 Carbon Dioxide 16 mmol/L (22-29) L 09/11/24 15:40 Anion Gap 30.3 (5-19) H 09/11/24 15:40 BUN 91 mg/dL (8-23) H* D 09/11/24 15:40 Creatinine 3.3 mg/dL (0.7-1.2) H 09/11/24 15:40 GFR Calculation 19.2 mL/min (90-130) L 09/11/24 15:40 Glucose 104 mg/dL (65-115) 09/11/24 15:40 Calculated Osmolality 308 mOsm/kg (285-295) H 09/11/24 15:40 Lactic Acid 11.7 mmol/L (0.5-2.2) H* 09/11/24 15:40 Calcium 10.3 mg/dL (8.5-10.5) 09/11/24 15:40 Total Bilirubin 1.1 mg/dL (0.15-1.2) 09/11/24 15:40 AST 68 U/L (0-40) H 09/11/24 15:40 ALT 31 U/L (0-41) 09/11/24 15:40 Alkaline Phosphatase 99 U/L (40-130) 09/11/24 15:40 Troponin T Baseline 66 ng/L (0-15) H 09/11/24 15:40 NT-Pro-B Natriuret Pep 4216 pg/mL (0-125) H 09/11/24 15:40 Total Protein 5.2 g/dL (6.6-8.7) L 09/11/24 15:40 Albumin 3.0 g/dL (3.5-5.2) L 09/11/24 15:40 Globulin 2.2 g/dL (1.3-4.6) 09/11/24 15:40 Lipase 211 U/L (13-60) H 09/11/24 15:40 TSH 2.81 uIU/mL (0.27-4.20) 09/11/24 15:40 Urine Color Yellow (Yellow) 09/11/24 16:20 Urine Appearance Cloudy (CLEAR) A 09/11/24 16:20 Urine pH 5.0 (5-7) 09/11/24 16:20 Ur Specific [place] 1.017 (1.005-1.030) 09/11/24 16:20 Urine Protein 1+ (Negative) A 09/11/24 16:20 Urine Glucose (UA) Negative (Normal) 09/11/24 16:20 Urine Ketones Trace (Negative) 09/11/24 16:20 Urine Blood 2+ (Negative) A 09/11/24 16:20 Urine Nitrate Negative (Negative) 09/11/24 16:20 Urine Bilirubin Negative (Negative) 09/11/24 16:20 Urine Urobilinogen 1.0 mg/dL (Negative) 09/11/24 16:20 Ur Leukocyte Esterase Negative (Negative) 09/11/24 16:20 Urine RBC 21-50 /hpf (0-2) H 09/11/24 16:20 Urine WBC 5-10 /hpf (0-5) H 09/11/24 16:20 Ur Squamous Epith Cells 0-5 /hpf (0-5) 09/11/24 16:20 Amorphous Sediment Not Reportable 09/11/24 16:20 Urine Bacteria 1+ /hpf (NONE) H 09/11/24 16:20 Hyaline Casts 23.98 /lpf 09/11/24 16:20 All radiology interpretation(s) finalized by discharge Critical Care Time Critical Care Time: Critical Care Time: Yes Total Critical Care Time: 40 Attestation: Time involved included performing tests, interpreting EKG, interpreting chest x-ray, discussions with the patient, managing sepsis, atrial fibrillation, hypotension, acute renal failure. Discharge Plan Discharge Patient Disposition: Admitted As Inpatient Clinical Impression: Dehydration Sepsis Qualifiers: Sepsis type: sepsis due to unspecified organism Sepsis acute organ dysfunction status: with acute organ dysfunction Severe sepsis acute organ dysfunction type: acute renal failure Acute renal failure type: unspecified Severe sepsis shock status: with septic shock Qualified Code(s): A41.9 - Sepsis, unspecified organism Atrial fibrillation Qualifiers: Atrial fibrillation type: unspecified Qualified Code(s): I48.91 - Unspecified atrial fibrillation Condition: Critical Prescriptions: No Action ondansetron 4 mg tablet,disintegrating 4 mg PO Q6H PRN (Reason: nausea and vomiting) Qty: 14 0RF hydrocodone-acetaminophen 5-325 mg tablet 1 tab PO Q6H PRN (Reason: pain) Qty: 25 0RF Coding Level of Care Code ED Tabulating Supervisor for Chg Fwd Related Data Previous Rx's Medication Instructions Recorded ondansetron 4 mg disintegrating 4 mg PO Q6H PRN nausea and 08/30/24 tablet vomiting #14 tabs hydrocodone 5 mg-acetaminophen 325 1 tab PO Q6H PRN pain #25 tabs 10/23/24 mg tablet Allergies Allergy/AdvReac Type Severity Reaction Status Date / Time No Known Allergies Allergy Verified 09/03/24 13:20
[2024-09-11 16:41] LABS: Add Urine Microscopic? YES; Hyaline Casts Urine 23.98 /lpf; RBC Urine 21-50 /hpf (0-2); Squamous Epithelial Cell Urine 0-5 /hpf (0-5)
[2024-09-11 16:51] LABS: Bacteria Urine 1+ /hpf; UA Slide Review UA Slide Review Perf
[2024-09-11 16:52] LABS: Add Urine Culture? Yes
[2024-09-11] MEDS: piperacillin-tazobactam 4.5 GM in sodium chloride 0.9% (plus) 50 ML IV (17:05)
--- NOTE | 2024-09-11 17:39 | P.HP_ITS ---
Providers/Chief Complaint 2 Admitting Physician: Raymundo Katz DO Chief Complaint: etta edema, failure to thrive, resp distress History of Present Illness Cricket Moran is a 63 year old male with no significant past medical history. He states that he has not been feeling well since his . He admits to not eating and drinking his watch he lives alone and has no family. Chart review showed recent CT abdomen pelvis with pathologic abdominal and pelvic lymphadenopathy and multiple nodes having decreased attenuation compatible with necrosis. Suspect metastatic disease however clinically correlate with infectious lymphadenopathy. Patient was also found to have moderate right hydronephrosis and proximal hydroureter with right ureter obstruction. He has seen surgeon on 09/03/2024 who asked for social work for a support network and plan to do excisional biopsy of a lymph node for diagnosis. Review of Systems 2 Const: Denies: fever(s) or chills Eyes: Denies: change in vision ENMT: Denies: throat pain or nasal congestion Card: Denies: chest pain or palpitations Resp: Denies: dyspnea or productive cough GI: Denies: abdominal pain, nausea, vomiting or change in stool character : Denies: difficulty urinating or dysuria Musc: Denies: back pain or extremity pain Skin/Breast: Denies: rash or lesions Neuro: Denies: headache(s) or dizziness Psych: Reports: depression (Since has .); Denies: anxiety Ryland/Lymph: Denies: easy bruising or easy bleeding Medications/Allergies Home Medications Medication Instructions Recorded Confirmed Last Taken Type ondansetron 4 mg disintegrating 4 mg PO Q6H PRN nausea and 08/30/24 09/03/24 Unknown Rx tablet vomiting #14 tabs hydrocodone 5 mg-acetaminophen 325 1 tab PO Q6H PRN pain #25 tabs 09/02/24 09/03/24 Unknown Rx mg tablet Allergies Allergy/AdvReac Type Severity Reaction Status Date / Time No Known Allergies Allergy Verified 09/03/24 13:20 PFSH Acute 2 PFSH: Social History Smoking and tobacco/nicotine status: former use of tobacco/nicotine Vitals/I&O/Wt Last Vital Signs Temp 97.7 F 09/11/24 15:18 Pulse 128 H 09/11/24 17:28 Resp 25 H 09/11/24 17:04 BP 94/65 09/11/24 17:28 Pulse Ox 95 09/11/24 17:28 O2 Del Method Nasal Cannula 09/11/24 17:28 O2 Flow Rate 2 09/11/24 17:28 09/11/24 09/11/24 09/11/24 06:59 14:59 22:59 Intake Total Balance Weight last 48 hrs Weight 49.895 kg Weight 54.431 kg Physical Exam 2 Narrative: Patient is cachectic. He appears disheveled. Patient is alert and oriented x 4. He is has tremors that he says have been present since childhood and the left upper extremity and head and neck. These are resting tremors that continue with effort. Motor and sensory are intact and equal he is overall weak. HEENT head is normocephalic atraumatic pupils are PERRLA and EO CO no scleral icterus patient with long carrasquillo and discolored with questionable markings of a burn in the midline. The patient is mostly edentulous with 1 tooth in poor condition. Nasal and pharyngeal mucosa are pale and moist. Neck is supple no JVD carotid bruits lymphadenopathy Heart very distant heart sounds tachycardia heard no murmur Lungs diminished in all lung szymanski no wheezes rales or rhonchi Abdomen flat soft nontender nondistended no hepatosplenomegaly hypoactive bowel sounds Extremities for present patient has pedal edema bilaterally and cold feet to touch with some purple discoloration of toes left greater than right Back no significant kyphosis or scoliosis no CVA tenderness Skin no lesions or rashes noted Psych. Mood and affect appropriate for condition Urinary Catheter Management: Currie: Cath Placed During This Visit: yes Urinary Catheter Date of Insertion: 09/11/24 Urinary Catheter Time of Insertion: 16:25 Data 09/11/24 15:40 09/11/24 15:40 Micro: Microbiology 09/11/24 16:59 Blood Culture - Preliminary Blood SPECIMEN COLLECTED 09/11/24 15:40 Blood Culture - Preliminary Blood SPECIMEN COLLECTED A&P Assessment and plan (1) Hypotension: Qualifiers: Hypotension type: hypotension due to hypovolemia Qualified Code(s): E 86.1 - Hypovolemia (2) Lactic acidosis: (3) Elevated troponin: (4) Elevated WBC count: Qualifiers: Leukocytosis type: other Qualified Code(s): D72.828 - Other elevated white blood cell count (5) Anemia: Qualifiers: Anemia type: unspecified type Qualified Code(s): D64.9 - Anemia, unspecified (6) Thrombocytopenia: (7) Atrial fibrillation with rapid ventricular response: (8) Acute kidney injury: Plan 63-year-old male with no significant past medical history reports that he has not been taking care of himself since his approximately a month ago. Also noted to have abdominal and pelvic lymphadenopathy. Was trying to help patient get social support to undergo excisional biopsy. Patient is found with A-fib RVR leukocytosis, lactic acidosis and acute kidney failure. Patient will be admitted to the ICU for pressors as needed for hypotension. Fluid resuscitation he has received 3 L of fluid thus far and will continue at 150 cc an hour of normal saline. He does have an elevated troponin with serial troponins to follow. Suspect elevated troponin due to severe lactic acidosis and dehydration thus a type II ischemic event. There is no source for infection at this time and I will hold off on antibiotics. In fact his elevated white blood cell count might be due to lymphadenopathy although he does not display lymphocytosis on differential. Continue Cardizem IV drip for the A-fib may need to add digoxin for better rate control. Consideration for amnio if this combination does not work. Further workup of abdominal pelvic adenopathy after hemodynamic stabilization. Attestations 2 Medical Necessity Statement*: Patient requires greater than 2 midnight stay due to hypotension in setting of hypotension, A-fib with RVR severe lactic acidosis elevated white blood cell count and acute kidney injury. Patient requires IV resuscitation and possible vasopressors for blood pressure maintenance. Coding Level of Care Code Acute Code for [facility] Fwd Diagnoses Hypotension due to hypovolemia E86.1 Hypotension type: hypotension due to hypovolemia Lactic acidosis E87.20 Elevated troponin R79.89 Other elevated white blood cell (WBC) count D72.828 Leukocytosis type: other Anemia, unspecified type D64.9 Anemia type: unspecified type Thrombocytopenia D69.6 Atrial fibrillation with rapid ventricular response I48.91 Acute kidney injury N17.9
[2024-09-11 17:40] LABS: Reflex Lactate Order REFLEX LACTIC ORDERD
[2024-09-11 17:55] LABS: Troponin 5 2HR 37.69 ng/L (0-15)
--- NOTE | 2024-09-11 17:56 | PC.NURSE ---
manual b/p 70/40 during transport to ICU, called ICU and nurse aware.
[2024-09-11 18:00] LABS: Troponin 5 2HR Delta -28.31 ABS# (0-10)
--- NOTE | 2024-09-11 18:12 | PC.NURSE ---
arrived from ED approximately 1745, BP 70s systolic HR 140s on cardezem Dr. Katz notified orders per MAR
[2024-09-11] MEDS: norepinephrine 4 MG/250 ML BAG 7.5 MG IV (18:13)
--- NOTE | 2024-09-11 18:19 | ECG_ITS ---
[facility] Test Date: 2024-09-11 Pat Name: Cricket Moran Department: Room: [facility] Gender: Male [employer] Chair: : 1960 Requested By: Garland Spears Order Number: [id number] Chris MD: Madeline Boston M.D. Measurements Intervals [place] Rate: 131 P: 0 PA: 0 QRS: 79 QRSD: 89 T: 195 QT: 281 QTc: 415 Interpretive Statements ATRIAL FIBRILLATION WITH RAPID VENTRICULAR RESPONSE NONSPECIFIC ST & T-WAVE ABNORMALITY Compared to ECG 09/11/2024 15:24:14 Possible ischemia no longer present T-wave abnormality still present Electronically Signed On 09-12-2024 13:49:50 CDT by Madeline Boston M.D. [id number]
[2024-09-11 18:26] LABS: Influenza A NEGATIVE (Negative); Influenza B NEGATIVE (Negative); Respiratory Syncytial Virus Ce NEGATIVE (Negative)
[2024-09-11] MEDS: digoxin 250 mcg/ml INJ 2 mL 500 MCG IVP (18:36)
[2024-09-11] MEDS: VANCOMYCIN ADD-Vantage 1,000 MG in 0.9% NaCl ADD-Vantage 250 ML 250 MG IV (18:36)
[2024-09-11] MEDS: heparin 5,000 unit/mL INJ 1 mL 5000 UNIT SUBCUT (18:37)
--- NOTE | 2024-09-11 18:37 | PHA.VACGOAL ---
Vancomycin Goal - Goal Vancomycin Indication:: Other - Therapy Current therapy:: Pip/Tazo Day of therpy:: Day []of [] . Actual body weight (kg): 110 lb - Data Labs: WBC 23.32 10^3/uL (3.29-11.43) H 09/11/24 15:40 RBC 3.75 10^6/uL (3.85-5.65) L 09/11/24 15:40 Hgb 9.60 g/dL (11.27-16.99) L 09/11/24 15:40 Hct 32.5 % (37-53) L 09/11/24 15:40 MCV 86.7 fl (82-101) 09/11/24 15:40 MCH 25.6 pg (27-33) L 09/11/24 15:40 MCHC 29.5 g/dL (30-55) L 09/11/24 15:40 RDW 16.0 % (12.1-15.1) H 09/11/24 15:40 Sodium 135 mmol/L (136-145) L 09/11/24 15:40 Potassium 5.3 mmol/L (3.5-5.1) H 09/11/24 15:40 Chloride 94 mmol/L (98-107) L 09/11/24 15:40 Carbon Dioxide 16 mmol/L (22-29) L 09/11/24 15:40 Anion Gap 30.3 (5-19) H 09/11/24 15:40 BUN 91 mg/dL (8-23) H* D 09/11/24 15:40 Creatinine 3.3 mg/dL (0.7-1.2) H 09/11/24 15:40 GFR Calculation 19.2 mL/min (90-130) L 09/11/24 15:40 Treatment plan:: new consult Regimen:: 1000 MG LOADING DOSE PHARMACY TO START PULSE DOSING TROUGH SADA 09/12 @ 1830; NEXT DOSE PENDING RESULT
[2024-09-11] MEDS: sodium chloride 0.9% 1,000 ML 150 ML IV (18:41)
--- NOTE | 2024-09-11 19:55 | PC.NURSE ---
Diltiazem 100mg in sodium chloride 0.9% infusion was not running when report received. DC'd in JAN.
[2024-09-11 20:58] LABS: Covid PCR Negative (Negative)
--- NOTE | 2024-09-11 21:13 | ECG_ITS ---
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 Measurements Intervals [place] Rate: 96 P: 63 MT: 122 QRS: 68 QRSD: 86 T: -51 QT: 297 QTc: 377 Interpretive Statements SINUS RHYTHM ST DEVIATION AND MODERATE T-WAVE ABNORMALITY, CONSIDER LATERAL ISCHEMIA ST DEVIATION AND MODERATE T-WAVE ABNORMALITY, CONSIDER INFERIOR ISCHEMIA Compared to ECG 09/11/2024 18:19:47 Possible ischemia now present Atrial fibrillation no longer present Electronically Signed On 09-12-2024 13:48:25 CDT by Madeline Boston M.D. [id number]
[2024-09-11 21:46] LABS: Troponin 5 6HR 59.78 ng/L (0-15); Troponin 5 6HR Delta -6.22 ng/L (0-12)
[2024-09-12] VITALS (96 sets, daily range): BP systolic 71–126; BP diastolic 35–107; PULSE 86–98; RESP 14–34; TEMP 37.3–38.3; O2SAT 79–100
[2024-09-12] MEDS: sodium chloride 0.9% 1,000 ML 150 ML IV ×2 (01:01→08:14)
--- NOTE | 2024-09-12 01:21 | PC.NURSE ---
Contacted Dr. Canales in reference to patient temperature of 100.5 tympanic. No new orders received at this time.
[2024-09-12] MEDS: heparin 5,000 unit/mL INJ 1 mL 5000 UNIT SUBCUT (05:48)
[2024-09-12] MEDS: piperacillin-tazobactam 3.375 GM in sodium chloride 0.9% (plus) 50 ML IV ×2 (05:48→18:09)
[2024-09-12 05:59] LABS: Hematocrit 26.5 % (37-53); Mean Corpuscular HGB Conc 29.1 g/dL (30-55); Mean Corpuscular Hemoglobin 25.8 pg (27-33); Mean Corpuscular Volume 88.6 fl (82-101); Mean Platelet Volume 10.6 fL (7.4-10.4); Platelet Count 87 10^3/cmm (157-399); Red Blood Count 2.99 10^6/uL (3.85-5.65); Red Cell Distribution Width 16.3 % (12.1-15.1); White Blood Count 22.52 10^3/uL (3.29-11.43)
[2024-09-12 06:20] LABS: Anion Gap 27.2 (5-19); Calcium 8.8 mg/dL (8.5-10.5); Carbon Dioxide 12 mmol/L (22-29); Chloride 101 mmol/L (98-107); Glomerular Filtration Rate 19.8 mL/min (90-130); Glucose 62 mg/dL (65-115); Magnesium 2.5 mg/dL (1.7-2.3); Osmolality Calculated 304 mOsm/kg (285-295); Potassium 5.2 mmol/L (3.5-5.1); Sodium 135 mmol/L (136-145)
[2024-09-12 06:33] LABS: Creatinine Clr Calc Pharmacy 23.4663
[2024-09-12 06:35] LABS: Blood Urea Nitrogen 86 mg/dL (8-23)
[2024-09-12 06:42] LABS: Slide Review Slide Review Perform
[2024-09-12 06:47] LABS: Absolute Eosinophils 0.2 10^3/cmm (0.0-0.7); Absolute Segmented Neutrophil 15.1 10/cmm (1.6-7.1); Band Neutrophils Absolute 3.6 10^3/cmm (0.0-1.2); Corrected White Blood Count 21.7 10^3/cmm (4.8-10.8); Eosinophils 1 %; Lymphocytes 6 %; Lymphocytes Absolute 1.4 10^3/cmm (1.2-3.4); Monocytes Absolute 0.2 10^3/cmm (0.1-0.6); Segmented Neutrophils 67 %; Total Cells Counted 100 (0-100)
[2024-09-12 06:49] LABS: Anisocytosis 1+; Macrocytosis Trace; Poikilocytosis 1+
[2024-09-12 06:50] LABS: Absolute Neutrophil 18.7 10^3/cmm (1.4-6.5); Platelet Estimate Decreased (Normal); Smudge Cells 1+
[2024-09-12 07:15] LABS: Glucose Point of Care 68 mg/dL (70-110)
[2024-09-12 09:42] LABS: Glucose Point of Care 87 mg/dL (70-110)
--- NOTE | 2024-09-12 12:29 | CTR_ITS ---
PROCEDURE INFORMATION: Exam: CT Chest Without Contrast; Diagnostic Exam date and time: 09/12/2024 2:25 PM Age: 63 years old Clinical indication: Abdominal tenderness; Dyspnea; Additional info: Diffuse abdomina lad, sepsis, maria l, diffuse abdominal lad, assess CT chest for TECHNIQUE: Imaging protocol: Diagnostic computed tomography of the chest without contrast. Radiation optimization: All CT scans at this facility use at least one of these dose optimization techniques: automated exposure control; mA and/or kV adjustment per patient size (includes targeted exams where dose is matched to clinical indication); or iterative reconstruction. COMPARISON: CR XR chest 1V portable [id number] 09/11/2024 4:05 PM RADIATION DOSE METRICS: Total DLP (mGy-cm): 758.51 FINDINGS: Tubes, catheters and devices: None. Lungs: Evidence for calcified lung granuloma in the right chest. Moderate degree bilateral perihilar and basilar interstitial alveolar pulmonary edema versus infiltrates, pneumonia within the lungs. Alveolar consolidation within the posterior basilar lower lobes bilaterally and symmetrically. Linear interstitial opacities within the anterior lungs extending to the upper lungs, more so on the right side. Indeterminate right lung nodule measuring 4 mm on axial image 19 is noncalcified. Pleural spaces: Small volume bilateral pleural effusions. Pleural effusion appears larger on the left side. No pneumothorax identified. Heart: The heart does not appear enlarged. No significant pericardial effusion. Coronary arteries: Coronary arterial calcifications are demonstrated. Lymph nodes: Calcified right hilar and right mediastinal lymph nodes are demonstrated. Vasculature: Unremarkable. No aortic aneurysm. Bones/joints: Mild to moderate generalized bony degenerative changes. Bony structures appear otherwise unremarkable. Soft tissues: Moderate diffuse generalized anasarca. Limited evaluation with diminished fat planes. Difficult to identify potential areas of inflammation, edema. Other findings: Limited study with artifact created by extremities overlying the area of imaging. Limited study with motion artifact. The irregular nodule within the right apex measures up to 1.8 cm on axial image 11 of series 5. at 18-24 months. (Reference: Elaine) References: Elaine Alexander et al. Guidelines for Management of Incidental Pulmonary Nodules Detected on CT Images: From the Fleischner Society 2017. Radiology. 2017;284(1):228-243. PROCEDURE INFORMATION: Exam: CT Abdomen And Pelvis Without Contrast Exam date and time: 09/12/2024 2:25 PM Age: 63 years old Clinical indication: Abdominal tenderness; Dyspnea; Additional info: Diffuse abdomina lad, sepsis, maria l, diffuse abdominal lad, assess CT chest for TECHNIQUE: Imaging protocol: Computed tomography of the abdomen and pelvis without contrast. Radiation optimization: All CT scans at this facility use at least one of these dose optimization techniques: automated exposure control; mA and/or kV adjustment per patient size (includes targeted exams where dose is matched to clinical indication); or iterative reconstruction. COMPARISON: CT abdomen pelvis w con* [id number] 08/30/2024 10:18 AM RADIATION DOSE METRICS: Total DLP (mGy-cm): 758.51 FINDINGS: Coronary arteries: Mild coronary artery calcification. Liver: Liver appears heterogeneous with irregular border. Possible hepatic parenchymal disease. Well-defined and simple appearing incidental hepatic lesion most compatible with a cyst. Liver cyst measurement and location: Posterosuperior right hepatic cyst measuring 21 mm on axial image 14. Gallbladder and biliary ducts: Indeterminate density identified within the gallbladder. Potential cholelithiasis, sludge. Consider gallbladder ultrasound. Pancreas: Unremarkable. Spleen: Incidental calcifications noted within the spleen, compatible with old granulomatous disease. The spleen is enlarged. Spleen measurement: 21 cm craniocaudal length. Adrenal glands: Normal. No mass. Kidneys and ureters: Evidence of severe right hydronephrosis. Retroperitoneal edema. Severe right hydronephrosis appears similar since prior CT. Stomach and bowel: Unremarkable. No obstruction, ileus or definite inflammation. Appendix: No evidence of appendicitis. Intraperitoneal space: Moderate volume of intraperitoneal fluid identified in the bilateral abdomen and pelvis. Diffuse generalized moderate to severe abdominal pelvic mesenteric edema. Vasculature: Mild atherosclerotic calcification demonstrated within the aorta. Lymph nodes: [place] density identified within the abdomen and pelvis mesentery and retroperitoneum concerning for diffuse lymphadenopathy. Limited assessment on this noncontrast study. Periaortic retroperitoneum density measures up to 3-4 cm. Enlarged lymphadenopathy within the right pelvis iliac chain with confluent density. This appears stable. This is obstructing the right ureter. Enlarged right inguinal lymphadenopathy measuring 3.8 cm on axial image 72. There is also more inferior enlarged right inguinal lymph node measuring 23 mm on axial image 84. Urinary bladder: Unremarkable as visualized. Reproductive: Unremarkable as visualized. Bones/joints: Moderate to severe right-sided degenerative disc disease at L5-S1 level. Mild to moderate generalized bony degenerative changes. Disc and osteophyte complexes with moderate to severe central canal and foraminal narrowing within the lumbar sacral junction. Bony structures appear otherwise unremarkable. Soft tissues: Moderate to severe diffuse generalized anasarca. Other findings: Limited study with artifact created by extremities overlying the area of imaging. Limited study with motion artifact. CT/[place] [id number] IMPRESSION: 1. Small bilateral pleural effusions. 2. Moderate pulmonary edema versus infiltrates, pneumonia. 3. Indeterminate right apex lung nodule measuring 1.8 cm. 4 mm right upper lobe lung nodule. Possible primary or metastatic malignancy. See Fleischner guideline recommendations below. For patients at low risk (minimal or absent history of smoking and of other known risk factors), recommend CT Chest at 3-6 months, then consider CT Chest at 18-24 months. For patients at high risk (history of smoking or of other known risk factors), recommend CT Chest at 3-6 months, then CT Chest IMPRESSION: 1. Severe right hydronephrosis. Retroperitoneal lymphadenopathy is obstructing the right ureter. Consider Urology, IR consultation. 2. Nonspecific heterogeneous and irregular appearance of the liver. Recommend correlation with liver function tests. Hepatic cyst. 3. Indeterminate gallbladder density. Possible sludge, gallstones. Consider gallbladder ultrasound. 4. Splenomegaly. Possible portal venous hypertension versus malignancy. 5. Extensive enlarged abdominopelvic retroperitoneal and right inguinal lymphadenopathy. Findings concerning for primary lymphoproliferative or metastatic malignancy. 6. Generalized anasarca. Ascites. 7. Chronic findings.
--- NOTE | 2024-09-12 12:29 | CTR_ITS ---
PROCEDURE INFORMATION: Exam: CT Head Without Contrast Exam date and time: 09/12/2024 2:22 PM Age: 63 years old Clinical indication: Other: Encephalopathy, encephalpathy, tremors TECHNIQUE: Imaging protocol: Computed tomography of the head without contrast. Radiation optimization: All CT scans at this facility use at least one of these dose optimization techniques: automated exposure control; mA and/or kV adjustment per patient size (includes targeted exams where dose is matched to clinical indication); or iterative reconstruction. COMPARISON: No relevant prior studies available. RADIATION DOSE METRICS: Total DLP (mGy-cm): 933.18 FINDINGS: Brain: No recent infarct, intracranial bleed or mass effect. There are bilateral periventricular white matter and centrum semiovale hypodensities, consistent with chronic ischemic small vessel disease. Cerebral ventricles: No ventriculomegaly. Paranasal sinuses: Mucous retention cyst in the left maxillary sinus. Mastoid air cells: Visualized mastoid air cells are well aerated. Bones: Unremarkable. No acute fracture. Soft tissues: Unremarkable. CT/CT head wo con* [id number] IMPRESSION: No large territorial infarct or intracranial bleed.
--- NOTE | 2024-09-12 12:29 | USCV_ITS ---
Cricket Moran Age: 63 Gender: M : 1960 Exam Date: 09/12/2024 18:17 Ordering Phys: Vaishnavi Rich MD Technologist: Kiel Gao Exam Location: [facility] – [place] Indication: new onset afib BP: 98 / 52 HR: 93 Rhythm: Sinus Technical Quality: Adequate MEASUREMENTS (Male / Female) Normal Values 2D ECHO LV Diastolic Diameter PLAX 4.4 cm 4.2 - 5.9 / 3.9 - 5.3 cm IVS Diastolic Thickness 1.4 cm 0.6 - 1.0 / 0.6 - 0.9 cm IVS Systolic Thickness 1.5 cm LVPW Diastolic Thickness 1.6 cm 0.6 - 1.0 / 0.6 - 0.9 cm LVPW Systolic Thickness 2.3 cm LVOT Diameter 2.2 cm LV Ejection Fraction 2D Teich 77.1 % LV Ejection Fraction MOD 4C 60.8 % LV Ejection Fraction MOD 2C 72.3 % LV Ejection Fraction 2C AL 71.8 % LA Diameter 3.0 cm RA Systolic Volume 4C AL 1164.1 ml RA Systolic Volume 4C MOD 43.7 ml LA Sys Volume AL 35.5 cm cubed LA Sys Volume Index AL 20.0 cm cubed/m squared Aorta at Sinotubular Diameter 2.1 cm IVC Diameter 1.6 cm M-MODE LA Ao Ratio MM 1.2 AV Cusp Separation MM 1.8 cm DOPPLER AV Peak Velocity 195.0 cm/s LVOT Peak Velocity 132.0 cm/s AV Area Cont Eq vti 2.2 cm squared AV Area Cont Eq pk 2.5 cm squared MV Peak Velocity 336.0 cm/s MV Area PHT 3.0 cm squared Mitral E to A Ratio 1.3 TV Peak Velocity 298.3 cm/s TR Peak Velocity 351.0 cm/s TR Peak Gradient 49.3 mmHg TR Mean Velocity 285.0 cm/s TR Mean Gradient 36.6 mmHg TR Velocity Time Integral 95.0 cm PV Peak Velocity 143.0 cm/s RV Ejection Time 0.3 s FINDINGS Left Ventricle Mild left ventricle hypertrophy. Normal wall motion and thickening. Normal LV systolic function. Estimated LVEF normal 65%. Right Ventricle Normal right ventricular size and systolic function. Right Atrium Normal right atrial size. Left Atrium Normal left atrial size. Mitral Valve Structurally normal mitral valve. No mitral valve regurgitation. Aortic Valve Structurally normal trileaflet aortic valve. No aortic valve stenosis. Tricuspid Valve Structurally normal tricuspid valve. Trace tricuspid valve regurgitation. Gradient across tricuspid valve normal 25 mmHg. Pulmonic Valve Structurally normal pulmonic valve. Trace pulmonary valve regurgitation. Pericardium Small pericardial effusion localized around anterior surface of the heart. No hemodynamic effect. A small pericardial effusion. Aorta Normal size aortic root and proximal ascending aorta. IVC Normal inferior vena cava. CONCLUSIONS Mild left ventricle hypertrophy. Normal LV systolic function. LVEF normal 65%. Normal right ventricle size and systolic function. No significant valvular abnormality noted. Normal right heart and pulmonary artery systolic pressures. Small pericardial effusion localized to anterior surface of the heart. Madeline Boston MD (Electronically Signed) Final Date: 13 September 2024 11:27 S
[2024-09-12] MEDS: dextrose 5%-sod chloride 0.9% 1,000 ML 30 ML IV (13:05)
[2024-09-12] MEDS: heparin 5,000 unit/mL INJ 1 mL IVP (13:09)
[2024-09-12] MEDS: heparin drip 25,000 UNIT/500 ML PREMIX 18.21 UNIT IV (13:11)
[2024-09-12] MEDS: amiodarone 200 mg Tablet 400 MG PO ×2 (13:12→18:09)
[2024-09-12 13:39] LABS: LAB Peripheral Smear Sent for Review
--- NOTE | 2024-09-12 13:46 | PM.PN ---
Subjective Subjective: Chart reviewed. History obtained from patient and also collateral information obtained from his friend Mr. Charles hogue. Patient states that he has been feeling ill for the past several months however has suffered a more acute decline since the of his in July 2024. Mr. Hogue reports that patient has had longstanding tremors affecting his upper extremities and also his mouth since the age of 11 years. These do appear to have worsened slowly over time however he has not previously been disabled as a result of these. States that over the past few years his had had to feed him as patient was unable to feed himself because of the tremors, however he was independent and working at [employer] until a few months ago. Patient correlates this information and states that he stopped working a few months ago as he felt extremely weak. He states that he has been losing weight, cannot quantify but states that his friends have pointed it out to him. His clothes are loose compared to previously. He denies any fever, however here has a fever of 101 Fahrenheit. States that his in July 2024 from some respiratory illness, perhaps COVID but there is no confirmation of the same. He has not previously seen any physicians and did not seek any medical attention until coming into the emergency room on August 30, 2024 with abdominal pain. Patient has abdominal hernia and thought that his hernia was the source of his discomfort. On August 30, 2024 he was found to have generalized retroperitoneal and abdominal lymphadenopathy with right-sided hydroureter, perhaps from extrinsic compression. He denies any history of chronic cough. Denies any change in his bowel habits. Denies any vomiting. He does endorse reduced appetite. It appears his used to be responsible for the meals, however states that he currently has ample food in the house he is just not hungry. He has never had a colonoscopy in the past. He has no known history of malignancy. Does not have any farm animals or other animal exposure. Does not consume any unpasteurized products. He is unable to tell me if he has been cooking meat adequately etc. It appears patient was hotlined for Adult Protective Services, had a social service agency director visit, he was found to have poor living conditions and was sent into the emergency room yesterday. There was some discussion between the social service agency director and him regarding hospice today. I had an extensive discussion with the patient and he declines hospice at this time. He would like to proceed with investigations to try to establish the cause of lymphadenopathy and potentially would like to evaluate if he has any reversible causes of what's making him sick. Lab abnormalities at presentation include anemia, hemoglobin at 9, down to 7.7 today. Leukocytosis, WBC at 22,000 today. Peripheral smear not performed, however on the differential there are noted to be some smudge cells, poikilocytosis and anisocytosis. DEMARCO with creatinine at 3.2. Urine output of 600 cc. Hypoglycemic this morning with blood glucose of 62. Lactate of 11.7 upon admission, down to 9.0. Capillary refill is currently normal. Mildly elevated AST at 68. Rest liver parameters are within normal range. Baseline troponin at 66, 2 hours at 37, 6 hours at 59 with negative delta's. Elevated BNP at 4200. No known history of heart failure. Elevated lipase at 211, nonspecific. Denies any past history of pancreatic cancer or history of pancreatitis. Elevated D-dimer at 3.49. Patient in A-fib with RVR upon admission for which she is currently on amiodarone infusion. Diagnosis of septic shock on admission for which she is on Levophed, currently at 2 mics. Blood culture taken yesterday thus far unrevealing. Urine culture pending. Currently has a Currie in place. UA with RBCs 21-50, 5-10 WBC, negative nitrate or leukocyte esterase. Tmax 101 Fahrenheit over last 24 hours. He is currently awake alert and oriented x 3. Able to correctly tell me his name age date of and address. Took some time to tell me the year however did recognize [facility]. Cannot tell me the president, however then does state that he does not really follow the news. No history of alcohol consumption. No history of IV drug use. Not a current smoker. He is extremely deconditioned and cachectic, appears to be grossly malnourished, disheveled. States that he has not ambulated. Offers minimal assistance when being turned by the nurses. Was not able to self-feed earlier today. Medications: Reviewed: Yes Vitals/I&O/Wt Last Vital Signs Temp 101.0 F H 09/12/24 10:45 Pulse 86 09/12/24 12:00 Resp 19 H 09/12/24 12:00 BP 117/64 09/12/24 12:00 Pulse Ox 95 09/12/24 12:00 O2 Del Method Nasal Cannula 09/12/24 12:00 O2 Flow Rate 2 09/12/24 12:00 09/11/24 09/12/24 09/12/24 22:59 06:59 14:59 Intake Total 3556.916 / 3556.916 2233.125 / 5790.041 2271.285 / 2271.285 Output Total 250 / 250 350 / 600 380 / 380 Balance 3306.916 / 3306.916 1883.125 / 5190.041 1891.285 / 1891.285 Weight last 48 hrs Weight 65.046 kg Weight 65.046 kg Weight 49.895 kg Weight 54.431 kg Physical Exam Narrative: General: No acute distress, AO x3, chronically ill-appearing male HEENT: PERRLA, pupils bilaterally equal and reactive, pallors not present Chest: Normal vesicular breath sounds, no added sounds, equal good air entry bilaterally CVS: S1-S2 regular, no murmurs, no tachycardia, no gallops, no rubs Abdomen: Soft, nontender, no organomegaly, bowel sounds present Neuro: No focal deficits, patient is extremely weak and deconditioned. Urinary Catheter Management: Currie: Cath Placed During This Visit: yes Reason for Continuing Indwelling Catheter: Accurate Measurement of Urinary Output in Critically Ill Patients Urinary Catheter Date of Insertion: 09/11/24 Urinary Catheter Time of Insertion: 16:25 Data 09/12/24 05:42 09/12/24 05:42 Micro: Microbiology 09/11/24 16:59 Blood Culture - Preliminary Blood SPECIMEN COLLECTED 09/11/24 15:40 Blood Culture - Preliminary Blood SPECIMEN COLLECTED Other data: XR/XR chest 1V portable [id number] IMPRESSION: No acute findings. A&P Assessment and plan (1) Sepsis: This was present on admission. Please see emergency room note and hospitalist H&P with regards to sepsis criteria, perfusion status, fluid status etc. As things stand right now, patient has a fever of 101 Fahrenheit, leukocytosis of 22,000, anemia and thrombocytopenia, signs of endorgan dysfunction by way of DEMARCO, lactic acidosis. Calculated SOFA score currently at 7 Patient is currently running fluids at normal saline 150 cc an hour. With elevated BNP, elevated troponins, concern for underlying CHF. Would discontinue IV fluids for now. Instead would start him on D5 normal saline, careful hydration between 30 to 50 cc an hour. Patient was hypoglycemic this morning therefore adding D5 to his IV fluids. Currently on treatment with piperacillin/tazobactam renally dosed. Add doxycycline 100 mg p[address]o. twice daily CT of the chest abdomen and pelvis for source evaluation. CT of the chest to additionally establish if patient has mediastinal lymphadenopathy in addition to inguinal lymphadenopathy. If there is also evidence of axillary or inguinal lymphadenopathy, patient may feasibly be able to undergo IR guided needle biopsy while being inpatient. This may help assist in diagnostics. Blood and urine culture pending UA does not appear to be consistent with infection To evaluate for infectious causes of lymphadenopathy, ordered for HIV, RPR, hepatitis panel, histoplasma antibody and urine antigen, Coccidioides serology, tularemia IgG IgM , tick panel, QuantiFERON TB screening since reportedly of a respiratory illness. With fever weight loss and necrotic lymph nodes TB is on the differential. If CT chest is normal, would not need isolation precautions at this time. Speech and swallow eval to assess for possible aspiration. Qualifiers: Acute renal failure type: unspecified Sepsis acute organ dysfunction status: with acute organ dysfunction Sepsis type: sepsis due to unspecified organism Severe sepsis acute organ dysfunction type: acute renal failure Severe sepsis shock status: with septic shock Qualified Code(s): A41.9 - Sepsis, unspecified organism; R65.21 - Severe sepsis with septic shock; N17.9 - Acute kidney failure, unspecified (2) Atrial fibrillation with rapid ventricular response: This is new onset. No prior history of the same Currently on amiodarone infusion Transition to oral amiodarone 400 mg twice daily and discontinue the drip. Start heparin anticoagulation Echocardiogram for new onset A-fib. Currently [id number] score noted to be at 0 based on reported history of no underlying medical comorbidities. However I am not certain at this time if patient may have underlying CHF and/or a stroke therefore we will start him on anticoagulation. Additionally current differential includes that of PE anticoagulation would likely benefit. A-fib may be short-lived related to sepsis, will see how this progresses during the course of his admission (3) Thrombocytopenia: New thrombocytopenia. From August 30, 2024 platelet count was at 83, currently at 87. May be related to sepsis Monitor for improvement with current treatment (4) Elevated troponin: With serially negative delta less likely to be telesales representative of ACS Elevated BNP, new onset A-fib, concern for underlying CHF. Check echocardiogram (5) Acute kidney injury: Likely multifactorial related to ATN from sepsis, recent contrast study, dehydration. UA does not represent UTI. CT from August 30 does show right-sided hydronephrosis probably related to extrinsic compression from enlarged lymph node. CT of the abdomen and pelvis today to assess for serial change. If renal function does not improve with hydration and continues to have poor urine output, may need to be transferred for ureteric stent placement. Will discuss case with urology at that point. (6) Lactic acidosis: Recheck lactate today. (7) Anemia: Check iron panel, B12 folate. TSH within normal limits. Check fecal occult blood to assess for GI bleeding. Qualifiers: Anemia type: unspecified type Qualified Code(s): D64.9 - Anemia, unspecified (8) Intra-abdominal lymphadenopathy: unclear cause. Infectious evaluation as above. Differential includes malignancy. Check peripheral smear, lymphoma panel, LDH. Check uric acid. With elevated potassium, elevated creatinine and potentially underlying cancer would be concern for tumor lysis syndrome. Unable to appreciate any gross inguinal or axillary lymphadenopathy, however would obtain CT of the sites to determine if superficial lymph node may be amenable for needle biopsy. If patient ends up transferring for urological purposes, will likely benefit a higher center where retroperitoneal lymph node biopsy may be performed with IR. (9) Tremor: This appears to be longstanding per his friend. History of rheumatic fever as a child following which patient has had a tremor affecting hands and face since 11 years of age. (10) Hypoxia: Hypoxia noted today with sats down to 77%. Differential is broad. Chest x-ray did not show any gross consolidation. May have developed interim pulmonary edema though I do not hear any crepitus on exam today. Alternately given elevated D-dimer and new onset A-fib possibility remains that of pulmonary embolism. Check lower extremity Doppler. I am unable to get a CTA due to DEMARCO. Started on presumptive anticoagulation with heparin. CT chest without contrast today to assess for any mediastinal lymphadenopathy which potentially may be having a compressive effect. Plan DVT prophylaxis: Currently on a heparin drip which will suffice DNR/DNI per discussion with the patient Patient does not have any family members. On asking who he would like to appoint as his medical decision-maker should he become encephalopathic or be unable to communicate with us, he does not really have an answer for the same. Attestations Medical Necessity Statement*: Greater than 2 midnight stay is anticipated for above defined evaluation, pressor support , wean amiodarone gtt Critical Care Time: The high probability of a clinically significant, sudden or life threatening deterioration of the patient's [ID, renal, pulmonary,cardiac] system(s) required my full and direct attention, intervention and personal management. The critical care time is as shown. This time is in addition to time spent performing any reported procedures but includes the following: [x] Data and vital sign review and interpretation [x] Patient assessment, examination and intervention [x] Documentation [x] Medication orders and management Critical Care Time (min): 90 Coding Level of Care Code Critical Care >/= 30 minutes Diagnoses Sepsis A41.9; R65.21; N17.9 Acute renal failure type: unspecified Sepsis acute organ dysfunction status: with acute organ dysfunction Sepsis type: sepsis due to unspecified organism Severe sepsis acute organ dysfunction type: acute renal failure Severe sepsis shock status: with septic shock Atrial fibrillation with rapid ventricular response I48.91 Thrombocytopenia D69.6 Elevated troponin R79.89 Acute kidney injury N17.9 Lactic acidosis E87.20 Anemia, unspecified type D64.9 Anemia type: unspecified type Intra-abdominal lymphadenopathy R59.0 Tremor R25.1 Hypoxia R09.02
[2024-09-12 13:51] LABS: Creatine Phosphokinase 99 U/L (39-308)
[2024-09-12 13:53] LABS: Lactate (Lactic Acid level) 9.9 mmol/L (0.5-2.2)
[2024-09-12 14:19] LABS: Hepatitis A Antibody IgM Non-Reactive (Nonreactive); Hepatitis B Core AB, Total Non-Reactive (Nonreactive); Hepatitis B Surface AB < 3.5 (11.5-1000); Hepatitis B Surface Antigen Non-Reactive (Nonreactive); Hepatitis C Virus Antibody Non-Reactive (Nonreactive)
[2024-09-12 14:27] LABS: Estmated Average Glucose 88; Hemoglobin A1C 4.7 % (4.0-6.0)
[2024-09-12 14:38] LABS: Iron 122 ug/dL (59-158); Uric Acid 17.2 mg/dL (3.4-7.0)
[2024-09-12 14:52] LABS: Folate Level 4.8 ng/mL (4.5-32.2)
[2024-09-12 14:55] LABS: Ferritin 4393 ng/mL (30-400); Lactate Dehydrogenase > 6057 U/L (135-225); Total Iron Binding Capacity 138.99999 mcg/dl; Unsaturated Iron Binding < 17 ug/dL (112-347)
[2024-09-12 14:56] LABS: HIV 1 & 2 Antibody Reactive (Non-Reactiv); HIV 1 & 2 Antigen Non-Reactive (Non-Reactiv)
[2024-09-12 17:06] LABS: MRSA PCR OZH (swab) NOT DETECTED (Negative)
[2024-09-12] MEDS: doxycycline 100 mg Tablet PO (18:09)
--- NOTE | 2024-09-12 19:01 | PC.NURSE ---
Bryant performed. Fluid responsive, SVI 13.6%
[2024-09-12 20:08] LABS: Partial Thromboplastin Time 159.2 SECONDS (23.9-36.7)
--- NOTE | 2024-09-12 20:13 | PC.NURSE ---
Contacted Dr. Benitez in reference to patients critical PTT of 159.2. Received orders to hold heparin for 2 hours, then restart at the equivalent of 700units/hr (10.7units/kg/hr). Recheck PTT in 4 hours.
[2024-09-12] MEDS: norepinephrine 4 MG/250 ML BAG 2 MG IV (23:21)
[2024-09-13] VITALS (56 sets, daily range): BP systolic 77–113; BP diastolic 22–69; PULSE 79–96; RESP 14–30; TEMP 37–38.7; O2SAT 88–100
--- NOTE | 2024-09-13 00:20 | PC.NURSE ---
Contacted Dr. Canales in reference to patient's temperature of 101.7 axillary and 101.6 tympanic temperature. Received orders for 650g PO Tylenol Q4H for fever and mild pain.
[2024-09-13] MEDS: acetaminophen 325 mg Tablet 650 MG PO (00:50)
--- NOTE | 2024-09-13 01:04 | PC.NURSE ---
Time changed from daylight savings time to central standard time.
[2024-09-13 01:12] LABS: Basophils # 0.2 10^3/uL (0.0-0.1); Basophils % 1.1 %; Eosinophils # 0.1 10^3/uL (0.0-0.8); Eosinophils % 0.6 %; Hematocrit 26.4 % (37-53); Lymphocytes # 4.1 10^3/uL (0.8-4.8); Lymphocytes % 17.9 %; Mean Corpuscular HGB Conc 29.2 g/dL (30-55); Mean Corpuscular Hemoglobin 25.7 pg (27-33); Mean Platelet Volume 11.2 fL (7.4-10.4); Monocytes # 1.8 10^3/uL (0.2-0.9); Neutrophils # 11.54 10^3/uL (1.8-7.7); Neutrophils % 50.7 %; Nucleated Red Blood Cells # 0.6 /100WBC; Nucleated Red Blood Cells % 2.5 %; Platelet Count 62 10^3/cmm (157-399); Red Cell Distribution Width 16.4 % (12.1-15.1); White Blood Count 22.78 10^3/uL (3.29-11.43)
[2024-09-13 01:33] LABS: Slide Review Slide Review Perform
[2024-09-13 01:35] LABS: Alanine Aminotransferase 25 U/L (0-41); Albumin Level 2.2 g/dL (3.5-5.2); Alkaline Phosphatase 86 U/L (40-130); Anion Gap 29.3 (5-19); Aspartate Amino Transferase 85 U/L (0-40); Calcium 9.2 mg/dL (8.5-10.5); Carbon Dioxide 11 mmol/L (22-29); Chloride 101 mmol/L (98-107); Creatinine Clr Calc Pharmacy 18.3152; Glomerular Filtration Rate 14.9 mL/min (90-130); Glucose 55 mg/dL (65-115); Osmolality Calculated 309 mOsm/kg (285-295); Potassium 5.3 mmol/L (3.5-5.1); Sodium 136 mmol/L (136-145); Total Bilirubin 0.5 mg/dL (0.15-1.2); Total Protein 4.2 g/dL (6.6-8.7)
[2024-09-13 01:38] LABS: Blood Urea Nitrogen 95 mg/dL (8-23)
[2024-09-13 01:39] LABS: Partial Thromboplastin Time 126.9 SECONDS (23.9-36.7)
[2024-09-13] MEDS: lactated ringers 1,000 ML 999 ML IV (04:18)
[2024-09-13] MEDS: piperacillin-tazobactam 3.375 GM in sodium chloride 0.9% (plus) 50 ML IV (05:24)
--- NOTE | 2024-09-13 06:49 | USR_ITS ---
PROCEDURE INFORMATION: Exam: US Duplex Lower Extremity Veins, Bilateral Exam date and time: 09/13/2024 7:05 AM Age: 63 years old Clinical indication: Screening exam; Assess for dvt TECHNIQUE: Imaging protocol: Real-time duplex ultrasound of the bilateral extremities with 2-D painting scale, color Doppler flow and spectral waveform analysis including responses to compression and other maneuvers (when performed) with image documentation. Complete exam focused on the lower extremity veins. COMPARISON: [place] [id number] 09/12/2024 2:25 PM FINDINGS: Right deep veins: Unremarkable. The common femoral, femoral, proximal profunda femoral and popliteal veins are patent without thrombus. Normal Doppler waveforms. Normal compressibility and/or augmentation response. Left deep veins: Unremarkable. The common femoral, femoral, proximal profunda femoral and popliteal veins are patent without thrombus. Normal Doppler waveforms. Normal compressibility and/or augmentation response. Superficial veins: Greater saphenous veins at the saphenofemoral junctions are patent bilaterally without thrombus. Soft tissues: Unremarkable. US/CV venous duplex [facility] [id number] IMPRESSION: No DVT.
[2024-09-13 08:40] LABS: Partial Thromboplastin Time 138.6 SECONDS (23.9-36.7)
[2024-09-13 09:10] LABS: Glucose Point of Care 58 mg/dL (70-110)
[2024-09-13] MEDS: pantoprazole DR 40 mg Tablet PO (09:10)
[2024-09-13] MEDS: amiodarone 200 mg Tablet 400 MG PO (09:10)
[2024-09-13] MEDS: doxycycline 100 mg Tablet PO (09:10)
[2024-09-13] MEDS: glucagon 1 mg/mL KIT 1 mL IM (09:37)
[2024-09-13] MEDS: dextrose 10% 125 ML 750 ML IV (09:38)
[2024-09-13] MEDS: dextrose 50% syringe 50 mL IVP (09:50)
[2024-09-13 10:13] LABS: Glucose Point of Care 205 mg/dL (70-110)
--- NOTE | 2024-09-13 10:19 | PC.NURSE ---
Noted lab values. Re checked blood sugar. 58 mg/dl. Encouraged and assisted by feeding pt container of applesauce and one Ensure. Dr Rich, now at bed side. Recheck of blood sugar 56mg/ml. Orders for Glucagon, D10% 125ml now and then follow by one amp of D 50% received and given. FOllow-up check up 207mg?Dl. Pt still very tired and lethargic.
[2024-09-13] MEDS: linezolid premix 600 MG/300 ML PREMIX 300 MG IV (10:39)
[2024-09-13] MEDS: sodium bicarbonate 150 MEQ in dextrose 5% 1,000 ML IV (11:29)
[2024-09-13] MEDS: meropenem 500 mg SDV IVP (11:29)
[2024-09-13 11:38] LABS: Glucose Point of Care 133 mg/dL (70-110)
[2024-09-13] MEDS: dextrose 5%-sod chloride 0.9% 1,000 ML 30 ML IV (11:48)
[2024-09-13] MEDS: acetaminophen 1,000 MG/100 ML PIGGYBACK 400 MG IV (11:49)
[2024-09-13 11:50] LABS: ABG PCO2 21.6 mmHg (35-45); ABG PH Result 7.21 (7.35-7.45); Alveolar-Arterial Oxygen Gradi 11.3 mmHg (5-10); Arterial Blood Gas Hematocrit 23.5 % (42-52); Base Excess ABG -17.8 mmol/L (-2.0-2.0); Blood Gas Allen Test Pos; Blood Gas Operator Identificat CAK; Blood Gas Sample Site Radial, right; Blood Gas Sample Type Arterial; HCO3 ABG 8.5 mmol/L (22-26); Ionized Calcium Level - ABG 1.4 mmol/L (1.1-1.4); Oxygen Device NC; Oxygen Saturation ABG 95.1; PO2 ABG 83.5 mmHg (80.0-100.0); PO2 FiO2 Ratio Arterial Blood 298; Potassium Level - ABG 4.8 mmol/L (3.5-5.0); Total Hemoglobin 7.7 g/dL (14-18)
--- NOTE | 2024-09-13 14:06 | PM.TDS ---
Transfer Summary Providers Date of Admission: 09/11/24 17:29 Date of Discharge/Transfer: 09/13/24 Attending Provider at Admission: Raymundo Katz DO Attending Provider at Transfer: Vaishnavi Rich MD Transfer Plans: Anticipated date of transfer: 09/13/24. Receiving Facility: [facility] . Receiving Provider: Dr. Guerra , group captain . Diagnoses at Discharge Discharge Diagnosis (1) Sepsis: Status: Acute Qualifiers: Acute renal failure type: unspecified Sepsis acute organ dysfunction status: with acute organ dysfunction Sepsis type: sepsis due to unspecified organism Severe sepsis acute organ dysfunction type: acute renal failure Severe sepsis shock status: with septic shock Qualified Code(s): A41.9 - Sepsis, unspecified organism; R65.21 - Severe sepsis with septic shock; N17.9 - Acute kidney failure, unspecified (2) Atrial fibrillation with rapid ventricular response: Status: Acute (3) Thrombocytopenia: Status: Acute (4) Elevated troponin: Status: Acute (5) Acute kidney injury: Status: Acute (6) Lactic acidosis: Status: Acute (7) Anemia: Status: Acute Qualifiers: Anemia type: unspecified type Qualified Code(s): D64.9 - Anemia, unspecified (8) Intra-abdominal lymphadenopathy: Status: Acute (9) Tremor: Status: Acute (10) Hypoxia: Status: Acute Reason for Visit Reason for Visit etta edema, failure to thrive, resp distress Brief History: Patient is a 63-year-old male with no known past medical history, however has not actively seek care in many years. He presented initially to the emergency room on August 30, 2024 with chief complaints of abdominal pain. He was found to have generalized retroperitoneal and abdominal lymphadenopathy with right-sided hydroureter, perhaps from extrinsic compression. His lab parameters were within normal range and he was discharged with recommendations to follow-up with oncology and general surgery. He visited with general surgery on September 03, 2024 and was recommended an excisional lymph node biopsy, however needed clearance for the surgery. While getting outpatient evaluation, he felt acutely ill and was brought into the ER on September 11, 2024. It appears he had been hotlined to [facility]PS and when the social worker masters came out to visit him she found him to be acutely ill and called EMS. He was found to be in septic shock. He had leukocytosis white blood cell count of 23,000. New thrombocytopenia. Elevated lactate of 11.7. DEMARCO with creatinine at 3.2. These numbers were previously normal on ER visits on August 30. WBC at that time was at 5.3. Platelets at 183. Creatinine at 1.2. He was noted to be grossly dehydrated. He has had poor p.o. intake over the past several months since the passing of his in July 2024. Patient has baseline tremor since the age of 11 years, which his friends state was thought to be related to her history of rheumatic fever at age 11. It appears in spite of the tremors he was able to work until a few months ago at [employer]. He was not previously on any disability. He was self ambulatory. His had to help feed him due to the tremors. On arrival here on September 11, 2024, he was diagnosed with septic shock and started on Levophed after fluid resuscitation failed to improve his blood pressures. He had a chest x-ray taken upon admission which did not show any gross consolidation. He was in A-fib with RVR upon admission, likely related to sepsis for which she required amiodarone infusion. He was transitioned to oral amiodarone on 09/12/2024. He is currently in sinus rhythm. He was started on treatment with piperacillin/tazobactam and vancomycin IV. Infectious source evaluation and pertinent labs summarized below: September 11, 2024 chest x-ray: No gross consolidation September 12, 2024 CT of the chest abdomen and pelvis: Small bilateral pleural effusions. Nonspecific bilateral infiltrates. Right apex lung nodule measuring 1.8 cm. 4 mm right upper lobe nodule. Possibly primary or metastatic malignancy. Severe right hydronephrosis. Retroperitoneal lymphadenopathy is obstructing the right ureter. Nonspecific heterogeneous appearance of the liver. Splenomegaly, possible portal venous hypertension versus malignancy. Enlarged extensive abdominopelvic retroperitoneal and right inguinal lymphadenopathy, findings concerning for a primary lymphoproliferative or metastatic malignancy. Generalized anasarca and ascites. September 12, 2024. CT head no large territorial infarct or intracranial bleed. Bilateral periventricular white matter hypodensities consistent with chronic ischemic small vessel disease. September 13, 2024, lower extremity venous duplex without DVT. Echocardiogram: Mild LVH normal LVEF of 65%, normal right ventricular size and systolic function, normal right heart and pulmonary artery systolic pressure. Small pericardial effusion localized to the anterior surface of the heart. WBC count: 23--> 22--> 22.7 Hemoglobin: 9.6--> 7.7-- > 7.7 (FOBT pending, no bowel movement) Platelet: 113--> 87--> 62 Potassium 5.3 Bicarb 16 --> 12---> 11 Creatinine 3.3--> 3.2--> 4.1 glucose LFTs: AST 65/ALT 31/ALP 99 09/12/2024: LDH: Greater than 6000 Lactate 11.9---> 9.9 Troponin baseline 66--> 37--> 59, downtrending delta is at 2 and 6-hour BNP 4200 Lipase 211 TSH 2.8 Ferritin 4300 Peripheral smear pending Lymphoma panel pending TG: pending uric acid: 17 D-dimer 09/11/2024: 3.49 (received presumptive anticoagulation with heparin on 09/12/2024, discontinued early on 09/13/2024 once lower extremity duplex returned negative, unable to get a CTA due to DEMARCO. Ventilation/perfusion scan is not currently available at our hospital due to shortage.) ABG September 13, 2024: 7.21/pCO2 21.6/pO2 83.5/bicarb 8.5 Micro blood culture 09/11/2024: No growth so far Urine culture pending; UA negative nitrite, negative leukocyte esterase, no significant pus cells RPR pending, QuantiFERON pending, tick panel pending, Francisella IgG IgM pending, hepatitis A IgM negative, hep B and C screen negative, pending urine histo antigen, pending cocci serology HIV 1 and 2 antibody initially reported reactive, rechecked with a HIV 1 2 antibody and HIV-1Ag discrimination assay: Tested negative Respiratory panel negative for COVID influenza and RSV. Patient currently remains on Levophed, currently between 2-4 mics, continues to have persisting leukocytosis, worsening renal function. Continues to have persisting fever up to 101.7 Fahrenheit. He has been hypoglycemic. Metabolic acidosis is worsening. Currently on a bicarb infusion. Today antibiotics were changed to meropenem and linezolid. Possibilities for continued deterioration include obstructive pyelonephritis, significant right-sided hydronephrosis as noted on CT scan, with persisting signs of sepsis. SVV at 55 on [place] monitoring. May need urological intervention with placement of ureteric stent to allow clinical improvement This time differentials also include possible tumor lysis syndrome, though confirmation of malignancy has not yet been achieved in the absence of a lymph node biopsy. He has elevated LDH, elevated lactate, uric acid of 17, which may point towards a lymphoproliferative disorder. Peripheral smear and lymphoma panel remain pending. IR is not available to undergo an inguinal lymph node needle biopsy at this time. Alternate possibility is that of HLH given fever, splenomegaly, bicytopenia, serum ferritin greater than 500. I am unable to obtain a CD25 level at our hospital. Triglyceride level pending at the time of this note. Given the above course, patient needs to be transferred to a higher center where urology services available as he needs a ureteric stent. Additionally patient will benefit from inpatient heme-onc services which we do not have at our hospital. Above was discussed with the patient and his friends in detail. He does not have a designated DPOA. His recently . He has no children or other immediate family members. He has 1 brother from whom he is estranged. His friends have been visiting him in the hospital however he does not wish to designate anyone to be his DPOA just yet. He is agreeable to the transfer as he wants to proceed with investigations to try to establish the cause of lymphadenopathy and would like to evaluate if he has any reversible causes of what's making him sick. He does not wish to be intubated or have chest compressions should the need arise- he is DNR/DNI. Agreebale to ICU care Physical Exam Narrative: General: frail cachetic male, coarse tremors affecting Left arm and face, per friends these are at baseline HEENT: PERRLA, pupils bilaterally equal and reactive, pallors not present Chest: coarse crackles to auscultation infra axillary areas CVS: S1-S2 regular, no murmurs, no tachycardia, no gallops, no rubs Abdomen: Soft, nontender, no organomegaly, bowel sounds present Neuro: No focal deficits, grossly deconditioned, does not participate with nursing efforts to reposition, etc . Extremities: cachetic, LE edema, however clinically intravascular depleted Urinary Catheter Management: Currie: Cath Placed During This Visit: yes Reason for Continuing Indwelling Catheter: Accurate Measurement of Urinary Output in Critically Ill Patients Urinary Catheter Date of Insertion: 09/11/24 Urinary Catheter Time of Insertion: 16:25 TS Data Studies Completed and Pending Pending at discharge Category Date Time Status Blood Culture Stat Lab 09/11/24 16:59 Results Coccidioides AB CF Serum Routine Lab 09/12/24 13:20 Received FTA [Treponema pallidum Ab] Routine Lab 09/12/24 13:20 Received Fecal Occult Blood [Immunochemical Fecal OCB] Routine Lab 09/12/24 13:48 Uncollected Francisella tularensis IgM/IgG Routine Lab 09/12/24 13:20 Received Histoplasma Antibody Immunodif Routine Lab 09/12/24 13:20 Received Histoplasma Quantitative AG Routine Lab 09/12/24 16:20 Received Quaeiohidvs-ON-Nxly Plus Routine Lab 09/12/24 13:20 Received RPR with Reflex to Titer Routine Lab 09/12/24 13:20 Received Sputum Culture and Gram Stain Routine Lab 09/12/24 12:43 Uncollected Tick Panel Routine Lab 09/12/24 13:20 Received Vitamin B12 Routine Lab 09/12/24 13:20 Received Completed Studies During Hospitalization Category Date Time Status CT chest abdomen pelvis [[place] [id number] Cat Scan 09/12/24 12:29 Completed ] Routine CT head wo con* [id number] Routine Cat Scan 09/12/24 12:29 Completed XR chest 1V portable [id number] Stat Exams 09/11/24 15:40 [place] [id number] Routine Ultrasound 09/13/24 06:49 Completed CV. echo complete* [id number] Routine Ultrasound 09/12/24 12:29 Completed Laboratory Last Values WBC 22.78 10^3/uL (3.29-11.43) H 09/13/24 00:56 Corrected WBC 21.7 10^3/cmm (4.8-10.8) H 09/12/24 05:42 RBC 3.00 10^6/uL (3.85-5.65) L 09/13/24 00:56 Hgb 7.70 g/dL (11.27-16.99) L 09/13/24 00:56 Hct 26.4 % (37-53) L 09/13/24 00:56 MCV 88.0 fl (82-101) 09/13/24 00:56 MCH 25.7 pg (27-33) L 09/13/24 00:56 MCHC 29.2 g/dL (30-55) L 09/13/24 00:56 RDW 16.4 % (12.1-15.1) H 09/13/24 00:56 Plt Count 62 10^3/cmm (157-399) L 09/13/24 00:56 MPV 11.2 fL (7.4-10.4) H 09/13/24 00:56 Neut % (Auto) 50.7 % 09/13/24 00:56 Lymph % (Auto) 17.9 % 09/13/24 00:56 [place] % (Auto) 8.0 % 09/13/24 00:56 Eos % (Auto) 0.6 % 09/13/24 00:56 Baso % (Auto) 1.1 % 09/13/24 00:56 Neut # (Auto) 11.54 10^3/uL (1.8-7.7) H 09/13/24 00:56 Lymph # (Auto) 4.1 10^3/uL (0.8-4.8) 09/13/24 00:56 [place] # (Auto) 1.8 10^3/uL (0.2-0.9) H 09/13/24 00:56 Eos # (Auto) 0.1 10^3/uL (0.0-0.8) 09/13/24 00:56 Baso # (Auto) 0.2 10^3/uL (0.0-0.1) H 09/13/24 00:56 Nucleated RBC % (auto) 2.5 % 09/13/24 00:56 Total Counted 100 (0-100) 09/12/24 05:42 Atypical Lymphs % 0.0 % (0-5) 09/12/24 05:42 Absolute Neutrophils 18.7 10^3/cmm (1.4-6.5) H 09/12/24 05:42 Segmented Neutrophils 67 % 09/12/24 05:42 Band Neutrophils 16.0 % 09/12/24 05:42 Absolute Lymphocytes 1.4 10^3/cmm (1.2-3.4) 09/12/24 05:42 Lymphocytes (Manual) 6 % 09/12/24 05:42 Monocytes (Manual) 1.0 % 09/12/24 05:42 Absolute Monocytes 0.2 10^3/cmm (0.1-0.6) 09/12/24 05:42 Eosinophils (Manual) 1 % 09/12/24 05:42 Absolute Eosinophils 0.2 10^3/cmm (0.0-0.7) 09/12/24 05:42 Basophils (Manual) 0.0 % 09/12/24 05:42 Absolute Basophils 0.0 10^3/cmm (0.0-0.2) 09/12/24 05:42 Metamyelocytes 7.0 % 09/12/24 05:42 Myelocytes 1.0 % 09/12/24 05:42 Promyelocytes 1.0 % 09/12/24 05:42 Nucleated RBCs 4.0 /100WBC (0-1) H 09/12/24 05:42 Nucleated RBCs # 0.6 /100WBC 09/13/24 00:56 Smudge Cells 1+ H 09/12/24 05:42 Platelet Estimate Decreased (Normal) 09/12/24 05:42 Poikilocytosis 1+ H 09/12/24 05:42 Anisocytosis 1+ H 09/12/24 05:42 Macrocytosis Trace 09/12/24 05:42 Peripher Smr Path Cons Sent for review 09/12/24 05:42 PT 16.60 SECONDS (12.1-14.9) H 09/11/24 15:40 INR 1.30 (0.8-1.2) H 09/11/24 15:40 APTT 138.6 SECONDS (23.9-36.7) H 09/13/24 08:07 D-Dimer 3.49 ug/mLFEU (0-0.59) H 09/11/24 15:40 Specimen Type Arterial 09/13/24 11:38 Sample Site Radial, right 09/13/24 11:38 ABG pH 7.21 (7.35-7.45) L 09/13/24 11:38 ABG pCO2 21.6 mmHg (35-45) L 09/13/24 11:38 ABG pO2 83.5 mmHg (80.0-100.0) 09/13/24 11:38 ABG PO2/FiO2 Ratio 298 09/13/24 11:38 ABG HCO3 8.5 mmol/L (22-26) L 09/13/24 11:38 ABG O2 Saturation 95.1 09/13/24 11:38 ABG Base Excess -17.8 mmol/L (-2.0-2.0) L 09/13/24 11:38 Jordin Test Pos 09/13/24 11:38 A-a O2 Gradient 11.3 mmHg (5-10) H 09/13/24 11:38 Hematocrit 23.5 % (42-52) L 09/13/24 11:38 Hgb O2 Saturation 94.0 % (95-100) L 09/13/24 11:38 Carboxyhemoglobin 1.0 %THgb (0.4-20.1) 09/13/24 11:38 Methemoglobin 0.0 % (0.4-1.5) L 09/13/24 11:38 Total Hemoglobin 7.7 g/dL (14-18) L 09/13/24 11:38 Sodium 135.0 mmol/L (131-143) 09/13/24 11:38 Potassium 4.8 mmol/L (3.5-5.0) 09/13/24 11:38 Glucose 120.0 mg/dL (70-115) H 09/13/24 11:38 Ionized Calcium 1.4 mmol/L (1.1-1.4) 09/13/24 11:38 O2 Delivery Device Nc 09/13/24 11:38 O2 Liters/Min 2.0 % 09/13/24 11:38 FiO2 28.0 % 09/13/24 11:38 Hand Paster ID Cak 09/13/24 11:38 Sodium 136 mmol/L (136-145) 09/13/24 00:56 Potassium 5.3 mmol/L (3.5-5.1) H 09/13/24 00:56 Chloride 101 mmol/L (98-107) 09/13/24 00:56 Carbon Dioxide 11 mmol/L (22-29) L 09/13/24 00:56 Anion Gap 29.3 (5-19) H 09/13/24 00:56 BUN 95 mg/dL (8-23) H* 09/13/24 00:56 Creatinine 4.1 mg/dL (0.7-1.2) H 09/13/24 00:56 GFR Calculation 14.9 mL/min (90-130) L 09/13/24 00:56 Glucose 55 mg/dL (65-115) L 09/13/24 00:56 POC Glucose 133 mg/dL (70-110) H 09/13/24 11:28 Estimat Average Glucose 88 09/12/24 13:20 Hemoglobin A1c 4.7 % (4.0-6.0) 09/12/24 13:20 Calculated Osmolality 309 mOsm/kg (285-295) H 09/13/24 00:56 Lactic Acid 11.7 mmol/L (0.5-2.2) H* 09/11/24 15:40 Lactic Acid (Sepsis) 9.0 mmol/L (0.5-2.2) H* 09/11/24 19:00 Lactate 9.9 mmol/L (0.5-2.2) H* 09/12/24 13:20 Uric Acid 17.2 mg/dL (3.4-7.0) H 09/12/24 05:42 Calcium 9.2 mg/dL (8.5-10.5) 09/13/24 00:56 Magnesium 2.5 mg/dL (1.7-2.3) H 09/12/24 05:42 Iron 122 ug/dL (59-158) 09/12/24 05:42 TIBC 138.14983 mcg/dl 09/12/24 05:42 % Saturation 87.0 % (20-50) H 09/12/24 05:42 Unsat Iron Binding < 17 ug/dL (112-347) L 09/12/24 05:42 Ferritin 4393 ng/mL (30-400) H 09/12/24 05:42 Total Bilirubin 0.5 mg/dL (0.15-1.2) 09/13/24 00:56 AST 85 U/L (0-40) H 09/13/24 00:56 ALT 25 U/L (0-41) 09/13/24 00:56 Alkaline Phosphatase 86 U/L (40-130) 09/13/24 00:56 Lactate Dehydrogenase > 6057 U/L (135-225) H 09/12/24 05:42 Creatine Kinase 99 U/L (39-308) 09/12/24 13:20 Troponin T Baseline 66 ng/L (0-15) H 09/11/24 15:40 Troponin T 120 Minute 37.69 ng/L (0-15) H 09/11/24 17:32 Delta Troponin T -28.31 ABS# (0-10) L 09/11/24 17:32 Troponin T Hi Sens 6Hr 59.78 ng/L (0-15) H 09/11/24 21:17 Troponin T Hi Sens 6Hr Delta -6.22 ng/L (0-12) L 09/11/24 21:17 NT-Pro-B Natriuret Pep 4216 pg/mL (0-125) H 09/11/24 15:40 Total Protein 4.2 g/dL (6.6-8.7) L 09/13/24 00:56 Albumin 2.2 g/dL (3.5-5.2) L 09/13/24 00:56 Globulin 2.0 g/dL (1.3-4.6) 09/13/24 00:56 Lipase 211 U/L (13-60) H 09/11/24 15:40 Vitamin B12 Cancelled 09/12/24 05:42 Folate 4.8 ng/mL (4.5-32.2) 09/12/24 05:42 TSH 2.81 uIU/mL (0.27-4.20) 09/11/24 15:40 Urine Color Yellow (Yellow) 09/11/24 16:20 Urine Appearance Cloudy (CLEAR) A 09/11/24 16:20 Urine pH 5.0 (5-7) 09/11/24 16:20 Ur Specific [place] 1.017 (1.005-1.030) 09/11/24 16:20 Urine Protein 1+ (Negative) A 09/11/24 16:20 Urine Glucose (UA) Negative (Normal) 09/11/24 16:20 Urine Ketones Trace (Negative) 09/11/24 16:20 Urine Blood 2+ (Negative) A 09/11/24 16:20 Urine Nitrate Negative (Negative) 09/11/24 16:20 Urine Bilirubin Negative (Negative) 09/11/24 16:20 Urine Urobilinogen 1.0 mg/dL (Negative) 09/11/24 16:20 Ur Leukocyte Esterase Negative (Negative) 09/11/24 16:20 Urine RBC 21-50 /hpf (0-2) H 09/11/24 16:20 Urine WBC 5-10 /hpf (0-5) H 09/11/24 16:20 Ur Squamous Epith Cells 0-5 /hpf (0-5) 09/11/24 16:20 Amorphous Sediment Not Reportable 09/11/24 16:20 Urine Bacteria 1+ /hpf (NONE) H 09/11/24 16:20 Hyaline Casts 23.98 /lpf 09/11/24 16:20 Nasal MRSA (PCR) Not detected (Negative) 09/12/24 14:07 Coronavirus (PCR) Negative (Negative) 09/11/24 17:11 Hepatitis A IgM Ab Non-reactive (Nonreactive) 09/12/24 13:20 Hep Bs Antigen Non-reactive (Nonreactive) 09/12/24 13:20 Hep Bs Antibody < 3.5 (11.5-1000) L 09/12/24 13:20 Hep B Core Total Ab Non-reactive (Nonreactive) 09/12/24 13:20 Hepatitis C Antibody Non-reactive (Nonreactive) 09/12/24 13:20 HIV 1&2 Ab & HIV 1 Ag Non-reactive (Non-Reactiv) 09/12/24 13:20 HIV 1&2 Antibody Reactive (Non-Reactiv) H 09/12/24 13:20 Influenza A (PCR) Negative (Negative) 09/11/24 17:11 Influenza Type B (PCR) Negative (Negative) 09/11/24 17:11 RSV (PCR) Negative (Negative) 09/11/24 17:11 Radiology Impressions Chest X-Ray 09/11/24 15:40 IMPRESSION: No acute findings. Chest/Abdomen/Pelvis CT 09/12/24 12:29 IMPRESSION: 1. Small bilateral pleural effusions. 2. Moderate pulmonary edema versus infiltrates, pneumonia. 3. Indeterminate right apex lung nodule measuring 1.8 cm. 4 mm right upper lobe lung nodule. Possible primary or metastatic malignancy. See Fleischner guideline recommendations below. For patients at low risk (minimal or absent history of smoking and of other known risk factors), recommend CT Chest at 3-6 months, then consider CT Chest at 18-24 months. For patients at high risk (history of smoking or of other known risk factors), recommend CT Chest at 3-6 months, then CT Chest IMPRESSION: 1. Severe right hydronephrosis. Retroperitoneal lymphadenopathy is obstructing the right ureter. Consider Urology, IR consultation. 2. Nonspecific heterogeneous and irregular appearance of the liver. Recommend correlation with liver function tests. Hepatic cyst. 3. Indeterminate gallbladder density. Possible sludge, gallstones. Consider gallbladder ultrasound. 4. Splenomegaly. Possible portal venous hypertension versus malignancy. 5. Extensive enlarged abdominopelvic retroperitoneal and right inguinal lymphadenopathy. Findings concerning for primary lymphoproliferative or metastatic malignancy. 6. Generalized anasarca. Ascites. 7. Chronic findings. Head CT 09/12/24 12:29 IMPRESSION: No large territorial infarct or intracranial bleed. Venous Duplex 09/13/24 06:49 IMPRESSION: No DVT. Recent Clincial Data Last Vital Signs Temp 99.4 F 09/13/24 13:00 Pulse 84 09/13/24 13:00 Resp 25 H 09/13/24 13:00 BP 89/51 09/13/24 13:00 Pulse Ox 96 09/13/24 13:00 O2 Del Method Nasal Cannula 09/13/24 13:00 O2 Flow Rate 2 09/13/24 13:00 Vital Signs Temp Pulse Resp BP Pulse Ox O2 Del Method O2 Flow Rate 09/13/24 13:00 99.4 F 84 25 H 89/51 96 Nasal Cannula 2 09/13/24 12:30 101 F H 88 27 H 99/56 97 Nasal Cannula 2 09/13/24 12:00 89 20 H 98/56 98 Nasal Cannula 2 09/13/24 11:15 101.4 F H 94 27 H 103/61 95 Nasal Cannula 2 09/13/24 11:00 96 30 H 92/47 91 Nasal Cannula 2 09/13/24 10:30 95 28 H 104/56 94 Nasal Cannula 2 09/13/24 10:15 89 18 104/56 94 Nasal Cannula 1 09/13/24 10:00 90 20 H 100/59 96 Nasal Cannula 1 09/13/24 09:15 88 17 96/53 95 Nasal Cannula 1 09/13/24 09:00 95 14 97/57 95 Room Air 09/13/24 08:30 92 26 H 111/67 95 Room Air 09/13/24 08:15 99.8 F H 92 26 H 111/67 92 Room Air 09/13/24 08:00 94 18 112/61 89 L Nasal Cannula 1 09/13/24 08:00 88 16 09/13/24 07:30 88 22 H 112/61 96 Nasal Cannula 1 09/13/24 07:26 88 16 94 Nasal Cannula 1 09/13/24 07:15 86 24 H 105/64 97 Nasal Cannula 1 09/13/24 07:00 86 23 H 105/64 96 Nasal Cannula 1 09/13/24 06:30 87 22 H 104/61 96 09/13/24 06:15 86 16 104/61 97 09/13/24 06:00 85 21 H 106/63 94 Nasal Cannula 1 09/13/24 05:51 80 09/13/24 05:45 87 18 106/63 97 09/13/24 05:30 82 20 H 107/60 97 09/13/24 05:15 82 27 H 107/60 99 09/13/24 05:00 82 15 103/57 100 09/13/24 04:45 82 19 H 103/57 96 09/13/24 04:30 82 17 89/63 96 09/13/24 04:15 85 22 H 89/63 97 09/13/24 04:00 98.6 F 88 21 H 102/55 91 Nasal Cannula 1 09/13/24 03:45 84 15 102/55 100 09/13/24 03:30 104/59 09/13/24 03:15 104/59 09/13/24 03:00 90 17 96/56 09/13/24 02:45 90 22 H 96/56 99 09/13/24 02:30 92 19 H 112/59 09/13/24 02:15 90 16 112/59 98 Intake & Output/Weight 09/11/24 09/12/24 09/13/24 09/14/24 07:59 07:59 06:59 06:59 Intake Total 1364.263 / 1364.263 Output Total 250 / 250 Balance 1114.263 / 1114.263 Weight Vitals Last Vital Signs Temp 99.4 F 09/13/24 13:00 Pulse 84 09/13/24 13:00 Resp 25 H 09/13/24 13:00 BP 89/51 09/13/24 13:00 Pulse Ox 96 09/13/24 13:00 O2 Del Method Nasal Cannula 09/13/24 13:00 O2 Flow Rate 2 09/13/24 13:00 TS Medications Medications Acetaminophen (Acetaminophen 325 Mg Tablet) 650 mg PO Q4H PRN PRN Reason: MILD PAIN OR INCREASE TEMP Last Admin: 09/13/24 00:50 Dose: 650 mg Albuterol/Ipratropium (Ipratropium-Albuterol 3 Ml Neb) 3 ml INHALATION Q6H PRN PRN Reason: SHORTNESS OF BREATH Amiodarone HCl (Amiodarone 200 Mg Tablet) 400 mg PO BID [facility] Last Admin: 09/13/24 09:10 Dose: 400 mg Norepinephrine Bitartrate (Levophed) 4 mg in 250 mls @ 0 mls/hr IV .Q0M [facility]; Protocol Last Titration: 09/13/24 09:57 Dose: 0 mcg/min, 0 mls/hr Dextrose/Sodium Chloride (Dextrose 5%-Sod Chloride 0.9%) 1,000 mls @ 30 mls/hr IV .Q24H [facility] Last Admin: 09/13/24 11:48 Dose: 30 mls/hr Dextrose (D10w) 125 mls @ 750 mls/hr IV PRN PRN PRN Reason: HYPOGLYCEMIA Last Admin: 09/13/24 09:38 Dose: 750 mls/hr Linezolid (Zyvox Premix) 600 mg in 300 mls @ 300 mls/hr IV Q12H [facility]; Protocol Last Admin: 09/13/24 10:39 Dose: 300 mls/hr Sodium Bicarbonate 150 meq/ (Dextrose) 1,150 mls @ 150 mls/hr IV .Q7H40M [facility] Last Admin: 09/13/24 11:29 Dose: 150 mls/hr Meropenem (Meropenem 500 Mg Sdv) 500 mg IVP Q12H [facility] Last Admin: 09/13/24 11:29 Dose: 500 mg Ondansetron HCl (Ondansetron 2 Mg/Ml Sdv 2 Ml) 4 mg IVP Q6H PRN PRN Reason: NAUSEA AND VOMITING Ondansetron HCl (Ondansetron 4 Mg Tablet) 4 mg PO Q6H PRN PRN Reason: NAUSEA Pantoprazole Sodium (Pantoprazole Dr 40 Mg Tablet) 40 mg PO DAILY [facility] Last Admin: 09/13/24 09:10 Dose: 40 mg Discontinued Medications Dextrose (Dextrose 50% Syringe 50 Ml) 50 ml IVP ONCE ONE Stop: 09/13/24 09:46 Last Admin: 09/13/24 09:50 Dose: 50 ml Digoxin (Digoxin 250 Mcg/Ml Inj 2 Ml) 500 mcg IVP NOW ONE Stop: 09/11/24 18:31 Last Admin: 09/11/24 18:36 Dose: 500 mcg Diltiazem HCl (Diltiazem 5 Mg/Ml Sdv 5 Ml) 10 mg IVP ONCE ONE Stop: 09/11/24 15:45 Last Admin: 09/11/24 15:57 Dose: 10 mg Doxycycline Monohydrate (Doxycycline 100 Mg Tablet) 100 mg PO BID [facility]; Protocol Last Admin: 09/13/24 09:10 Dose: 100 mg Glucagon (Glucagon 1 Mg/Ml Kit 1 Ml) 1 mg IM ONCE STA Stop: 09/13/24 09:32 Last Admin: 09/13/24 09:37 Dose: 1 mg Heparin Sodium (Porcine) (Heparin 5,000 Unit/Ml Inj 1 Ml) 5,000 unit SUBCUT Q12H [facility] Last Admin: 09/12/24 05:48 Dose: 5,000 unit Heparin Sodium (Porcine) (Heparin 5,000 Unit/Ml Inj 1 Ml) 0 unit IVP PRN PRN; Protocol PRN Reason: Heparin Weight Based Protocol -Subsequent Bolus Heparin Sodium (Porcine) (Heparin 5,000 Unit/Ml Inj 1 Ml) 0 unit IVP ONCE ONE; Protocol Stop: 09/12/24 12:30 Last Admin: 09/12/24 13:09 Dose: 3,250 unit Diltiazem HCl 100 mg/ Sodium (Chloride) 100 mls @ 0 mls/hr IV .Q0M [facility]; Protocol Last Titration: 09/13/24 09:19 Dose: Infused Sodium Chloride (Sodium Chloride 0.9%) 1,000 mls @ 999 mls/hr IV .Q1H1M ONE Stop: 09/11/24 16:45 Last Infusion: 09/11/24 16:31 Dose: Infused Sodium Chloride (Sodium Chloride 0.9%) 1,000 mls @ 999 mls/hr IV .Q1H1M SADA Stop: 09/11/24 18:30 Last Infusion: 09/11/24 17:56 Dose: Infused Piperacillin Sod/Tazobactam (Sod 4.5 gm/ Sodium Chloride) 50 mls @ 100 mls/hr IV ONCE ONE; Protocol Stop: 09/11/24 16:57 Last Infusion: 09/11/24 17:57 Dose: Infused Sodium Chloride (Sodium Chloride 0.9%) 1,000 mls @ 150 mls/hr IV .Q6H40M SADA Last Infusion: 09/12/24 13:07 Dose: 0 mls/hr Amiodarone HCl/Dextrose (Nexterone) 360 mg in 200 mls @ 0 mls/hr IV .Q0M SADA; Protocol Last Titration: 09/13/24 09:18 Dose: Infused Piperacillin Sod/Tazobactam (Sod 3.375 gm/ Sodium Chloride) 50 mls @ 12.5 mls/hr IV Q12H SADA; Protocol Last Admin: 09/13/24 05:24 Dose: 12.5 mls/hr Vancomycin HCl 1,000 mg/ (Sodium Chloride) 250 mls @ 250 mls/hr IV ONCE ONE Stop: 09/11/24 19:29 Last Infusion: 09/11/24 19:56 Dose: Infused Heparin Sodium/Sodium Chloride (Heparin Drip) 25,000 unit in 500 mls @ 0 mls/hr IV CONT SADA; Protocol Last Titration: 09/13/24 09:47 Dose: Infused Lactated Ringer's (Lactated Ringers) 1,000 mls @ 999 mls/hr IV .Q1H1M SADA Stop: 09/13/24 05:00 Last Infusion: 09/13/24 05:23 Dose: Infused Acetaminophen (Acetaminophen) 1,000 mg in 100 mls @ 400 mls/hr IV ONCE ONE Stop: 09/13/24 11:39 Last Admin: 09/13/24 11:49 Dose: 400 mls/hr Allergies No Known Allergies Allergy (Verified 09/03/24 13:20) Home Medications hydrocodone 5 mg-acetaminophen 325 mg tablet 1 tab PO Q6H PRN pain #25 tabs 09/02/24 [Rx Confirmed 09/11/24] Discharge Plan Discharge Patient Disposition: Xfer Other Condition: Stable Prescriptions: No Action hydrocodone-acetaminophen 5-325 mg tablet 1 tab PO Q6H PRN (Reason: pain) Qty: 25 0RF Discharge Orders: Discharge Order (Routine); Ordered 09/13/24 Ordered By: Vaishnavi Rich Transfer Out of Facility (Order); Ordered 09/13/24 Ordered By: Vaishnavi Rich Patient Instructions: Opioid Safety Transfer Attestations Time Spent in Transfer Care: critical care time Critical Care Time (min): 90 Specific Discharge Activities: educating patient, educating and/or supporting family/caregiver, discussing with pcp/other providers, documenting/other paperwork and evaluating patient/reviewing data Other discharge activites: coordinating transfer to higher center Status at Transfer: Cognitive status at transfer: cognitively intact; Behavioral status at transfer: cooperative and dependent in ADL's; Functional status at transfer: bed bound; Overall status at transfer: patient is not back to baseline Quality Metrics Clinical Quality Measures [ No reported AMI, CVA or VTE this stay] Coding Level of Care Code Acute Code for g Fwd Diagnoses Sepsis A41.9; R65.21; N17.9 Acute renal failure type: unspecified Sepsis acute organ dysfunction status: with acute organ dysfunction Sepsis type: sepsis due to unspecified organism Severe sepsis acute organ dysfunction type: acute renal failure Severe sepsis shock status: with septic shock Atrial fibrillation with rapid ventricular response I48.91 Thrombocytopenia D69.6 Elevated troponin R79.89 Acute kidney injury N17.9 Lactic acidosis E87.20 Anemia, unspecified type D64.9 Anemia type: unspecified type Intra-abdominal lymphadenopathy R59.0 Tremor R25.1 Hypoxia R09.02
--- NOTE | 2024-09-13 14:37 | PC.NURSE ---
Call Cristy,6A, Medical ICU to give report. Rpeort given to Felicity Babb RN. All questions answered. To call back when pt leaves facility
--- NOTE | 2024-09-13 15:16 | PC.NURSE ---
Called Joey [employer] back. He required a report prior to sending amb. Report given.
--- NOTE | 2024-09-13 15:40 | PC.NURSE ---
Pt verbalized consent for Bernadette Gil, Britton Dillard and Charles Hogue to be his contact numbers.
--- NOTE | 2024-09-13 15:45 | PC.NURSE ---
Addendum entered by Alanna Maldonado RN 09/13/24 16:53: No personal belongings with pt. Original Note: Ambulance crew here. Pt care transferred to them. Triny Blevins at [facility] called and notified of pt leaving facility
[2024-09-13 16:11] LABS: Phosphorus 4.8 mg/dL (2.5-4.5); Triglycerides 363 mg/dL (0-150)
--- NOTE | 2024-09-14 16:36 | PC.SOCIAL ---
Patient transferred to [facility] in [place]
== END 2024-09-13 15:45 | disposition short-term general hospital (02) | DRG 871 ==
LOC: ER 17:15 → ICU 17:30
PROVIDERS: Internal Medicine; Admitting Provider Internal Medicine; Emergency Provider Emergency Medicine; Visit Provider Student in an Organized Health Care Education/Training Program
DX: A41.9 Sepsis, unspecified organism (principal); I21.A1 Myocardial infarction type 2; R65.21 Severe sepsis with septic shock; E46 Unspecified protein-calorie malnutrition; E87.20 Acidosis, unspecified; N17.9 Acute kidney failure, unspecified; R25.1 Tremor, unspecified; E86.1 Hypovolemia; D64.9 Anemia, unspecified; D69.6 Thrombocytopenia, unspecified; I48.91 Unspecified atrial fibrillation; R59.0 Localized enlarged lymph nodes; E86.0 Dehydration; R09.02 Hypoxemia; Z68.22 Body mass index [BMI] 22.0-22.9, adult; Z87.891 Personal history of nicotine dependence
CPT/HCPCS: 0241U; 36415; 36416; 36600; 51702; 70450; 71045; 71250; 74176; 80048; 80051; 80053; 80503; 81001; 82330; 82550; 82607; 82728; 82746; 82803; 82805; 82962; 83036; 83540; 83550; 83605; 83615; 83690; 83735; 83880; 84100; 84443; 84478; 84484; 84550; 85007; 85025; 85378; 85610; 85730; 86160; 86480; 86592; 86618; 86635; 86666; 86668; 86698; 86705; 86706; 86709; 86757; 86803; 87040; 87086; 87340; 87385; 87806; 88184; 88185; 93005; 93306; 93970; 94664; 96365; 96366; 96367; 96372; 96374; 96375; 96376; 97161; 99291; 99292; J0131; J0283; J1160; J1610; J1644; J2020; J2185; J2543; J3490; J7030; J7042; J7070; J7120; J7799